=== PATIENT | female | born 1950 | race Hispanic/Latino ===

== ENCOUNTER 2017-09-10 07:49 | Emergency (ER) | payer OTHER ==
[~2017-09-10 07:49] MED LIST: AMLO5TAB2 PO; BACL10TA PO; IBUP-2070 PO; MVIT PO; PRAV10TA39 PO; SUCR1TAB2 PO; TRAM-355 PO
[2017-09-10] MEDS ORDERED: DEXAMETHASONE SOD PHOSPHATE 10MG/ML 1ML VIAL ONE (08:12)
[2017-09-10] MEDS ORDERED: ONDANSETRON HCL 4 MG/2 ML VIAL ONE (08:13)
[2017-09-10] MEDS ORDERED: CEFTRIAXONE SODIUM 1 GM ONE (08:13)
[2017-09-10] MEDS ORDERED: SODIUM CHLORIDE 0.9% 500ML 500 ML IV ONE (08:13)
[2017-09-10] MEDS ORDERED: IPRATROPIUM/ALBUTEROL SULFATE 3 ML SOLUTION IH ONE (08:41)
[2017-09-10 08:47] LABS: BASOPHILS % (AUTO) 0.5 % (0.0-5.0); EOSINOPHILS % (AUTO) 1.4 % (0.0-8.0); HEMATOCRIT 37.9 % (36-48); LYMPHOCYTES % (AUTO) 20.2 % (21.0-51.0); MEAN CORPUSCULAR HEMOGLOBIN 30.2 pg (27.0-33.0); MEAN CORPUSCULAR VOLUME 88.9 fL (79-99); MONOCYTES % (AUTO) 6.6 % (3.0-13.0); NEUTROPHILS % (AUTO) 71.3 % (40.0-77.0); PLATELET COUNT (AUTO) 363 K/uL (130-400); RED BLOOD CELL COUNT(AUTO) 4.26 MIL/uL (4.00-5.50); RED CELL DISTRIBUTION WIDTH 14.3 % (11.0-15.5); WHITE BLOOD COUNT (AUTO) 9.9 K/uL (4.8-10.8)
[2017-09-10 08:58] LABS: CREATININE 0.6 mg/dL (0.5-1.5); POTASSIUM 3.3 mmol/L (3.5-5.1)
== END 2017-09-10 09:36 | disposition home or self-care (01) ==
LOC: EDH 07:49
DX: J20.9 Acute bronchitis, unspecified (principal); R11.0 Nausea; I10 Essential (primary) hypertension; E78.00 Pure hypercholesterolemia, unspecified; M79.7 Fibromyalgia; Z98.890 Other specified postprocedural states; Z90.710 Acquired absence of both cervix and uterus
CPT/HCPCS: 36415; 71046; 80048; 85025; 87804 ×2; 93005; 94640; 96361; 96374; 96375; 99285; J0696; J1100; J2405; J7040

== ENCOUNTER → 2018-02-01 | Outpatient (CLI) | payer OTHER | END | disposition home or self-care (01) | LOC: SHCH 15:49 | PROVIDERS: ATTEND Internal Medicine Cardiovascular Disease | DX: I51.7 Cardiomegaly (principal); I25.119 Atherosclerotic heart disease of native coronary artery with unspecified angina pectoris | CPT/HCPCS: 93306 ==

== ENCOUNTER → 2018-02-02 | Outpatient (CLI) | payer OTHER ==
[~2018-02-02] VITALS: Ht 165.1 cm; Wt 81.6 kg
[~2018-02-02] MED LIST changes: +REGADENOSON 0.4 MG/5 ML PF SYG IVP SCH
== END | disposition home or self-care (01) ==
LOC: SHCH 08:50
PROVIDERS: ATTEND Internal Medicine Cardiovascular Disease
DX: I25.119 Atherosclerotic heart disease of native coronary artery with unspecified angina pectoris (principal)
CPT/HCPCS: 78452; 93017; 96374; A9500 ×2; J2785

== ENCOUNTER 2019-02-17 06:56 | Day surgery (SDC) | payer OTHER ==
[~2019-02-17 06:56] MED LIST changes: -AMLO5TAB2 PO; +ASPI-1181 PO; +ATOR40TA71 PO; +GABA-531 PO; -IBUP-2070 PO; +METR-172 PO; -MVIT PO; +NITR0.4T SL; -PRAV10TA39 PO; -REGADENOSON 0.4 MG/5 ML PF SYG IVP SCH; +SERT25TA5 PO; -TRAM-355 PO
--- NOTE | 2019-02-17 08:30 | NUR ---
PATIENT TRANSFERRED TO IR PATIENT TAKEN TO IR VIA STRETCHER FOR PROCEDURE BY EVIN. Addendum: 02/17/19 at 0955 by JORGE LUIS MCGEHE RN RN [id number] PATIENT TAKEN TO IR
[2019-02-17 08:31] LABS: BASOPHILS % (AUTO) 0.5 % (0.0-5.0); HEMATOCRIT 38.3 % (36-48); MEAN CORPUSCULAR HGB CONC 33.8 g/dL (32.0-36.0); MEAN CORPUSCULAR VOLUME 91.6 fL (79-99); MONOCYTES % (AUTO) 12.5 % (3.0-13.0); NUCLEATED RED BLOOD CELLS 0.1 % (0.0-0.19); PLATELET COUNT (AUTO) 290 K/uL (130-400); RED BLOOD CELL COUNT(AUTO) 4.17 MIL/uL (4.00-5.50); RED CELL DISTRIBUTION WIDTH 14.9 % (11.0-15.5); WHITE BLOOD COUNT (AUTO) 6.2 K/uL (4.8-10.8)
[2019-02-17 08:41] LABS: INR 1.11 (0.85-1.15); PARTIAL THROMBOPLASTIN TIME 29.3 SEC (26.3-35.5); PROTHROMBIN TIME 11.6 SEC (9.6-11.6)
[2019-02-17 09:08] LABS: CREATININE 0.7 mg/dL (0.5-1.5); POTASSIUM 4.2 mmol/L (3.5-5.1)
[2019-02-17 09:28] LABS: ALBUMIN 3.6 g/dL (3.5-5.0); BILIRUBIN,TOTAL 1.5 mg/dL (0.2-1.0); TOTAL PROTEIN, SERUM 7.1 g/dL (6.0-8.3)
[2019-02-17] MEDS ORDERED: FENTANYL CITRATE PF 50 MCG/1 ML 2ML VIAL ONE (09:56)
[2019-02-17] MEDS ORDERED: MIDAZOLAM HCL 1 MG/ML 2ML VIAL ONE (09:56)
--- NOTE | 2019-02-17 11:05 | NUR ---
U/S GD LIVER BX RANDOM SITE PROCEDURE PERFORMED BY DR Mike PIERSON. PUNCTURE SITE RUQ AND PATIENT TOLERATED PROCEDURE WELL. SPECIMEN X 3 COLLECTED AND SENT TO LAB. END OF PROCEDURE AT 1030. FLOSEAL INJECTED TO BX SITE. BIOPSY NEEDLE REMOVED AND DRESSING APPLIED. NO BLEEDING NOTED. REPORT GIVEN TO Serenity CLARK RN AND PATIENT TRANSPORTED TO DAY PATIENT VIA STRETCHER AT 1105. AAO X3 WITH NO C/O PAIN.
--- NOTE | 2019-02-17 11:10 | NUR ---
PATIENT RETURNED: PATIENT BROUGHT BACK FROM PROCEDURE ON STRETCHER. PATIENT AAOX3, MINIMAL PAIN/DISCOMFORT NOTED. DRESSING DRY AND INTACT, NO DRAINAGE OR REDNESS NOTED. VITAL SIGNS STABLE.
== END 2019-02-17 12:50 | disposition home or self-care (01) ==
LOC: DAH 06:56 → EDSTATUS 08:00 → DAH 12:50
PROVIDERS: ATTEND Internal Medicine Gastroenterology
DX: K73.9 Chronic hepatitis, unspecified (principal); K74.60 Unspecified cirrhosis of liver; K59.04 Chronic idiopathic constipation; K21.0 Gastro-esophageal reflux disease with esophagitis; K76.0 Fatty (change of) liver, not elsewhere classified; K29.70 Gastritis, unspecified, without bleeding; K44.9 Diaphragmatic hernia without obstruction or gangrene; E78.5 Hyperlipidemia, unspecified; I10 Essential (primary) hypertension; F41.9 Anxiety disorder, unspecified; F32.9 Major depressive disorder, single episode, unspecified; M19.90 Unspecified osteoarthritis, unspecified site; M79.7 Fibromyalgia; I25.10 Atherosclerotic heart disease of native coronary artery without angina pectoris; Z79.899 Other long term (current) drug therapy; Z90.710 Acquired absence of both cervix and uterus
CPT/HCPCS: 36415; 47000; 76942; 80053; 85025; 85610; 85730; 88307; C2615; J2250; J3010; 99152; 99153

== ENCOUNTER → 2020-02-17 | Outpatient (CLI) | payer OTHER | END | disposition home or self-care (01) | DX: R10.11 Right upper quadrant pain (principal) ==

== ENCOUNTER 2020-06-28 17:00 | Observation (INO) | payer OTHER ==
[~2020-06-28] VITALS: Ht 165.1 cm; Wt 75.7 kg
[~2020-06-28 17:00] MED LIST changes: -ASPI-1181 PO; +ASPI-1443 PO
[2020-06-28 17:34] VITALS: BP 128/76
[2020-06-28 18:26] LABS: HEMATOCRIT 36.4 % (36-48); MEAN CORPUSCULAR HEMOGLOBIN 31.1 pg (27.0-33.0); MEAN CORPUSCULAR HGB CONC 34.6 g/dL (32.0-36.0); MEAN CORPUSCULAR VOLUME 89.9 fL (79-99); PLATELET COUNT (AUTO) 405 K/uL (130-400); RED BLOOD CELL COUNT(AUTO) 4.05 MIL/uL (4.00-5.50); RED CELL DISTRIBUTION WIDTH 13.8 % (11.0-15.5); WHITE BLOOD COUNT (AUTO) 5.2 K/uL (4.8-10.8)
[2020-06-28 18:43] LABS: INR 1.06 (0.85-1.15); PARTIAL THROMBOPLASTIN TIME 29.6 SEC (26.3-35.5); PROTHROMBIN TIME 11.4 SEC (9.6-11.6)
[2020-06-28 18:51] LABS: ALANINE AMINOTRANSFERASE 38 U/L (12-78); ALBUMIN 3.5 g/dL (3.5-5.0); ASPARTATE AMINOTRANSFERASE 53 U/L (10-37); BILIRUBIN,TOTAL 1.4 mg/dL (0.2-1.0); CARBON DIOXIDE 30 mmol/L (21-32); CHLORIDE 97 mmol/L (101-111); CREATINE KINASE, TOTAL 249 U/L (21-232); CREATININE 0.7 mg/dL (0.5-1.5); GLOMERULAR FILTR. RATE CALC 88 mL/min (>60); GLUCOSE,RANDOM 106 mg/dL (70-105); MYOGLOBIN 82 ng/mL (10-92); SODIUM SERUM 133 mmol/L (136-145); TROPONIN I < 0.04 ng/mL (0.00-0.06); UREA NITROGEN, BLOOD 8 mg/dL (7-18)
[2020-06-28 18:53] LABS: POTASSIUM 2.9 mmol/L (3.5-5.1)
[2020-06-28 18:57] LABS: B-TYPE NATRIURETIC PEPTIDE 9 pg/mL (0-100)
[2020-06-28] MEDS ORDERED: GLUCAGON 1MG KIT 1 MG ML IM PRN (19:00)
[2020-06-28] MEDS ORDERED: POTASSIUM CHLORIDE 20MEQ/100ML 100 ML IV PRN (19:00)
[2020-06-28] MEDS ORDERED: LIDOCAINE HCL-MPF 1% 2ML VIAL IJ PRN (19:00)
[2020-06-28] MEDS ORDERED: DEXTROSE 50%-WATER 50 ML DISP.SYRIN IV PRN (19:00)
[2020-06-28] MEDS ORDERED: POTASSIUM CHLORIDE 20 MEQ ERTAB PO PRN (19:00)
[2020-06-28 19:11] VITALS: BP 129/65
[2020-06-28 19:40] LABS: EOSINOPHILS % (MANUAL) 3 % (1-6); LYMPHOCYTES % (MANUAL) 12 % (22-44); MAN.DIFF COMMENT-IMPRESSION MANUAL DIFFERENTIAL; MONOCYTES % (MANUAL) 13 % (2-9); REACTIVE LYMPHOCYTES 8 % (0-0); SEGMENTED NEUTROPHILS % 64 % (40-70)
[2020-06-28] MEDS ORDERED: SODIUM CHLORIDE 0.9% 250 ML IV ONE (19:58)
[2020-06-28] MEDS: ATORVASTATIN CALCIUM 10 MG TABLET PO SCH (20:14)
[2020-06-28] MEDS: POTASSIUM CHLORIDE 10% ELIXIR 20 MEQ/15 ML UDCUP PO PRN ×2 (20:15→23:34)
[2020-06-28] MEDS: INSULIN R PO SS1 SQ SCH (21:00)
[2020-06-28 23:29] VITALS: BP 122/74
[2020-06-29] VITALS (12 sets, daily range): BP systolic 104–139; BP diastolic 56–89
[2020-06-29] MEDS: POTASSIUM CHLORIDE 10% ELIXIR 20 MEQ/15 ML UDCUP PO PRN ×2 (03:16→03:17)
[2020-06-29] MEDS: INSULIN R PO SS1 SQ SCH ×2 (07:30→11:30)
[2020-06-29] MEDS: HYDROCHLOROTHIAZIDE 25 MG TABLET PO SCH (09:00)
[2020-06-29] MEDS: AMILORIDE HCL 5 MG TABLET PO SCH (09:00)
[2020-06-29] MEDS: AMLODIPINE BESYLATE 5 MG TAB PO SCH (09:00)
[2020-06-29 09:02] LABS: CREATININE 0.7 mg/dL (0.5-1.5); POTASSIUM 4.6 mmol/L (3.5-5.1)
[2020-06-29] MEDS ORDERED: ONDANSETRON HCL 4 MG/2 ML VIAL IVP PRN (10:45)
[2020-06-29] MEDS ORDERED: ACETAMINOPHEN 325 MG TAB PO PRN ×2 (10:45)
[2020-06-29] MEDS ORDERED: AMLO2.5T4 PO (11:28)
[2020-06-29] MEDS ORDERED: FLUT1BLS3 IH (11:28)
[2020-06-29] MEDS ORDERED: HYDR12.54 PO (11:28)
[2020-06-29] MEDS ORDERED: PRED2.5T PO (11:28)
[2020-06-29] MEDS ORDERED: AZAT50TA17 PO (11:28)
[2020-06-29] MEDS ORDERED: ESOM40CA54 PO (11:28)
[2020-06-29] MEDS ORDERED: LINA145C PO (11:28)
[2020-06-29] MEDS ORDERED: AMIL5TAB8 PO (11:28)
[2020-06-29] MEDS ORDERED: ROSU5TAB12 PO (11:28)
[2020-06-29] MEDS ORDERED: HYDROCHLOROTHIAZIDE 25 MG TABLET PO SCH (11:55)
[2020-06-29] MEDS ORDERED: AMILORIDE HCL 5 MG TABLET PO SCH (12:00)
[2020-06-29] MEDS ORDERED: NITROGLYCERIN 2 MG/VIAL VIAL IV ONE (15:33)
[2020-06-29] MEDS ORDERED: NICARDIPINE HCL 25 MG/10 ML ML IV ONE (15:33)
[2020-06-29] MEDS ORDERED: IOHEXOL-350 50ML VIAL IV ONE (15:34)
[2020-06-29] MEDS ORDERED: IOHEXOL 350 MG/ML 100ML INFUS..BTL IV ONE (15:34)
[2020-06-29] MEDS ORDERED: LIDOCAINE HCL 2% 20ML ONE (15:39)
[2020-06-29] MEDS ORDERED: SODIUM BICARB 50MEQ 50ML VIAL 50 ML ONE (15:39)
[2020-06-29] MEDS ORDERED: HEPARIN SODIUM 1000UNIT/ML 10ML VIAL ONE (15:58)
[2020-06-29] MEDS ORDERED: MIDAZOLAM HCL 1 MG/ML 2ML VIAL ONE (15:59)
[2020-06-29] MEDS ORDERED: FENTANYL CITRATE PF 50 MCG/1 ML 2ML VIAL ONE (15:59)
[2020-06-29] MEDS: FAMOTIDINE 20MG TAB 20 MG TAB PO SCH (20:59)
[2020-06-29] MEDS: ATORVASTATIN CALCIUM 10 MG TABLET PO SCH (20:59)
[2020-06-29] MEDS ORDERED: NON-FORMULARY MEDICATION 1 EACH (Rosuvastatin Calcium 1 TAB) PO SCH (21:00)
[2020-06-30 03:48] VITALS: BP 127/70
[2020-06-30] MEDS ORDERED: AMLODIPINE BESYLATE 2.5 MG TAB PO SCH (09:00)
[2020-06-30] MEDS: AMILORIDE HCL 5 MG TABLET PO SCH (09:00)
[2020-06-30] MEDS: HYDROCHLOROTHIAZIDE 25 MG TABLET PO SCH (09:00)
[2020-06-30 09:03] VITALS: BP 127/69
[2020-06-30] MEDS: FAMOTIDINE 20MG TAB 20 MG TAB PO SCH (09:35)
[2020-06-30] MEDS: AMLODIPINE BESYLATE 5 MG TAB PO SCH (09:36)
[2020-06-30 12:08] VITALS: BP 122/69
[2020-06-30 16:29] VITALS: BP 130/73
[2020-06-30] MEDS ORDERED: AMIL5TAB8 PO (18:12)
== END 2020-06-30 19:45 | disposition home or self-care (01) ==
LOC: 4BH 17:00 → INTOOBSV 17:00
PROVIDERS: ADMIT Internal Medicine; ATTEND Internal Medicine
PROC: B2111ZZ Fluoroscopy of Multiple Coronary Arteries using Low Osmolar Contrast (ICD-10-PCS; principal; 2020-06-28)
PROC: B2151ZZ Fluoroscopy of Left Heart using Low Osmolar Contrast (ICD-10-PCS; 2020-06-28)
PROC: 4A023N7 Measurement of Cardiac Sampling and Pressure, Left Heart, Percutaneous Approach (ICD-10-PCS; 2020-06-28)
DX: I25.10 Atherosclerotic heart disease of native coronary artery without angina pectoris (principal); E78.5 Hyperlipidemia, unspecified; E87.6 Hypokalemia; I10 Essential (primary) hypertension; Z60.2 Problems related to living alone; K82.8 Other specified diseases of gallbladder; R07.89 Other chest pain; Z82.0 Family history of epilepsy and other diseases of the nervous system; Z82.3 Family history of stroke; Z82.49 Family history of ischemic heart disease and other diseases of the circulatory system; Z82.5 Family history of asthma and other chronic lower respiratory diseases; Z83.3 Family history of diabetes mellitus
CPT/HCPCS: 36415 ×2; 71045; 80048; 80053; 82550; 82948; 83874; 83880; 84484 ×2; 85025; 85610; 85730; 93005; 93458; C1769 ×2; C1894 ×2; G0378 ×51; J1644 ×2; J2250; J3010; J3480; J3490 ×5; J7050; Q9965; Q9967 ×2; 99156; 99157

== ENCOUNTER → 2020-12-20 | Outpatient (CLI) | payer OTHER ==
[~2020-12-20] MED LIST changes: +AMIL5TAB8 PO; +AMLO2.5T4 PO; -ASPI-1443 PO; -ATOR40TA71 PO; +AZAT50TA17 PO; -BACL10TA PO; +ESOM40CA54 PO; +FLUT1BLS3 IH; -GABA-531 PO; +HYDR12.54 PO; +LINA145C PO; -METR-172 PO; -NITR0.4T SL; +PRED2.5T PO; +ROSU5TAB12 PO; -SERT25TA5 PO; -SUCR1TAB2 PO
== END | disposition home or self-care (01) ==
LOC: RAH 09:09
PROVIDERS: ATTEND Internal Medicine Gastroenterology
DX: R10.12 Left upper quadrant pain (principal); Z90.49 Acquired absence of other specified parts of digestive tract
CPT/HCPCS: 76700

== ENCOUNTER 2021-01-02 10:56 | Emergency (ER) | payer OTHER ==
[2021-01-02 11:45] LABS: BASOPHILS % (AUTO) 0.5 % (0.0-5.0); EOSINOPHILS % (AUTO) 0.8 % (0.0-8.0); HEMATOCRIT 39.3 % (36-48); LYMPHOCYTES % (AUTO) 17.3 % (21.0-51.0); MEAN CORPUSCULAR HEMOGLOBIN 31.4 pg (27.0-33.0); MEAN CORPUSCULAR HGB CONC 34.1 g/dL (32.0-36.0); MONOCYTES % (AUTO) 11.1 % (3.0-13.0); NEUTROPHILS % (AUTO) 69.8 % (40.0-77.0); PLATELET COUNT (AUTO) 369 K/uL (130-400); RED BLOOD CELL COUNT(AUTO) 4.27 MIL/uL (4.00-5.50); RED CELL DISTRIBUTION WIDTH 15.5 % (11.0-15.5); WHITE BLOOD COUNT (AUTO) 6.4 K/uL (4.8-10.8)
[2021-01-02] MEDS ORDERED: PROCHLORPERAZINE EDISYLATE 10 MG/2 ML VIAL ONE (11:45)
[2021-01-02] MEDS ORDERED: MORPHINE 4 MG SYG (4MG/1ML) ONE (11:45)
[2021-01-02] MEDS ORDERED: ONDANSETRON HCL 4 MG/2 ML VIAL ONE (11:45)
[2021-01-02] MEDS ORDERED: SODIUM CHLORIDE 0.9% 500ML 500 ML IV ONE (11:46)
[2021-01-02 11:52] LABS: CREATININE 0.6 mg/dL (0.5-1.5); POTASSIUM 3.6 mmol/L (3.5-5.1)
[2021-01-02 12:03] LABS: ALBUMIN 3.7 g/dL (3.5-5.0); TOTAL PROTEIN, SERUM 7.7 g/dL (6.0-8.3)
[2021-01-02 14:55] LABS: APPEARANCE,URINE CLOUDY (CLEAR); BILIRUBIN,URINE NEGATIVE (NEGATIVE); COLOR,URINE YELLOW (YELLOW); GLUCOSE, URINE (UA) NEGATIVE (NEGATIVE); KETONES,URINE NEGATIVE (NEGATIVE); LEUKOCYTE ESTERASE ,URINE LARGE (NEGATIVE); NITRATE,URINE POSITIVE (NEGATIVE); OCCULT BLOOD,URINE LARGE (NEGATIVE); PROTEIN,URINE NEGATIVE (NEGATIVE); UROBILINOGEN,URINE 0.2 mg/dL (0.2-1.0)
[2021-01-02 15:01] LABS: BACTERIA,URINE Many /HPF (None Seen); MUCUS,URINE Few LPF (None Seen); SQUAMOUS EPITHELIAL CELL,UR Few /HPF (0-2); WBC,URINE 51-100 /HPF (0-1)
[2021-01-02] MEDS ORDERED: CEFTRIAXONE SODIUM 1 GM ONE (15:15)
[2021-01-02] MEDS ORDERED: SODIUM CHLORIDE 0.9% 50 ML IV ONE (15:15)
== END 2021-01-02 15:46 | disposition home or self-care (01) ==
LOC: EDH 10:56
DX: N10 Acute pyelonephritis (principal); N39.0 Urinary tract infection, site not specified; I10 Essential (primary) hypertension; M79.7 Fibromyalgia; E78.00 Pure hypercholesterolemia, unspecified; E86.0 Dehydration
CPT/HCPCS: 36415; 74176; 80053; 81001; 85025; 87077; 87088; 87186; 96361; 96365; 96375; 99284; J0696; J0780; J2270; J2405; J7040

== ENCOUNTER → 2021-02-07 | Outpatient (CLI) | payer OTHER | END | disposition home or self-care (01) | LOC: RAH 09:50 | PROVIDERS: ATTEND Urology | DX: N20.1 Calculus of ureter (principal); N20.0 Calculus of kidney; M41.80 Other forms of scoliosis, site unspecified; K76.0 Fatty (change of) liver, not elsewhere classified; K57.90 Diverticulosis of intestine, part unspecified, without perforation or abscess without bleeding; N32.89 Other specified disorders of bladder; K56.41 Fecal impaction; I70.8 Atherosclerosis of other arteries; M47.815 Spondylosis without myelopathy or radiculopathy, thoracolumbar region; Z87.440 Personal history of urinary (tract) infections; Z90.49 Acquired absence of other specified parts of digestive tract | CPT/HCPCS: 74176 ==

== ENCOUNTER 2021-03-29 18:03 | Emergency (ER) | payer OTHER ==
[~2021-03-29] VITALS: Ht 165.1 cm; Wt 72.1 kg
[2021-03-29 18:07] VITALS: BP 159/81
[2021-03-29] MEDS ORDERED: 0.9%NACL 1000ML 1,000 ML IV SCH (19:00)
[2021-03-29 19:28] VITALS: BP 144/75
[2021-03-29 19:29] LABS: BASOPHILS % (AUTO) 0.5 % (0.0-5.0); EOSINOPHILS % (AUTO) 0.5 % (0.0-8.0); HEMATOCRIT 37.3 % (36-48); LYMPHOCYTES % (AUTO) 9.5 % (21.0-51.0); MEAN CORPUSCULAR HEMOGLOBIN 31.2 pg (27.0-33.0); MEAN CORPUSCULAR VOLUME 94.7 fL (79-99); MONOCYTES % (AUTO) 10.7 % (3.0-13.0); NEUTROPHILS % (AUTO) 78.5 % (40.0-77.0); PLATELET COUNT (AUTO) 305 K/uL (130-400); RED BLOOD CELL COUNT(AUTO) 3.94 MIL/uL (4.00-5.50); RED CELL DISTRIBUTION WIDTH 15.1 % (11.0-15.5); WHITE BLOOD COUNT (AUTO) 6.6 K/uL (4.8-10.8)
[2021-03-29] MEDS ORDERED: LACTULOSE 20 GM/30 ML UDCUP PO ONE (19:30)
[2021-03-29 19:33] LABS: CARBON DIOXIDE 30 mmol/L (21-32); CHLORIDE 104 mmol/L (101-111); CREATININE 0.6 mg/dL (0.5-1.5); GLOMERULAR FILTR. RATE CALC 105 mL/min (>60); GLUCOSE,RANDOM 113 mg/dL (70-105); POTASSIUM 3.3 mmol/L (3.5-5.1); SODIUM SERUM 143 mmol/L (136-145); UREA NITROGEN, BLOOD 13 mg/dL (7-18)
[2021-03-29 19:37] LABS: ALANINE AMINOTRANSFERASE 41 U/L (12-78); ALBUMIN 3.3 g/dL (3.5-5.0); ASPARTATE AMINOTRANSFERASE 41 U/L (10-37); TOTAL PROTEIN, SERUM 6.8 g/dL (6.0-8.3)
[2021-03-29 19:39] LABS: CRP QUANTITATIVE < 2.00 mg/L (0.00-9.0)
[2021-03-29 19:43] LABS: APPEARANCE,URINE Clear (CLEAR); BILIRUBIN,URINE Negative (NEGATIVE); COLOR,URINE Yellow (YELLOW); GLUCOSE, URINE (UA) Negative (NEGATIVE); KETONES,URINE Negative (NEGATIVE); LEUKOCYTE ESTERASE ,URINE Trace (NEGATIVE); NITRATE,URINE Negative (NEGATIVE); OCCULT BLOOD,URINE Trace (NEGATIVE); PH,URINE 6.5 (5.0-8.0); PROTEIN,URINE Negative (NEGATIVE); UROBILINOGEN,URINE 0.2 mg/dL (0.2-1.0)
[2021-03-29 19:55] LABS: BACTERIA,URINE Few /HPF (None Seen); RBC,URINE 0-1 /HPF (0-1); SQUAMOUS EPITHELIAL CELL,UR Rare /HPF (0-2)
[2021-03-29] MEDS ORDERED: POTASSIUM BICARB/CIT AC 25 MEQ TABLET.EFF PO ONE (20:00)
[2021-03-29] MEDS ORDERED: LACT10PA5 PO (20:02)
[2021-03-29 20:55] VITALS: BP 147/77
== END 2021-03-29 21:40 | disposition home or self-care (01) ==
LOC: EDH 18:03
DX: K57.30 Diverticulosis of large intestine without perforation or abscess without bleeding (principal); K59.00 Constipation, unspecified; E78.00 Pure hypercholesterolemia, unspecified; I10 Essential (primary) hypertension; J44.9 Chronic obstructive pulmonary disease, unspecified; M19.90 Unspecified osteoarthritis, unspecified site; M79.7 Fibromyalgia; E86.0 Dehydration; Z79.52 Long term (current) use of systemic steroids; Z79.899 Other long term (current) drug therapy
CPT/HCPCS: 36415; 71045; 74176; 80053; 81001; 83605; 84484; 85025; 86140; 87040 ×2; 93005; 96360; 99285; J7030

== ENCOUNTER → 2021-05-28 | Outpatient (CLI) | payer OTHER ==
[~2021-05-28] MED LIST changes: +LACT10PA5 PO
== END | disposition home or self-care (01) ==
LOC: RAH 13:26
PROVIDERS: ATTEND Family Medicine
DX: N39.0 Urinary tract infection, site not specified (principal); R39.15 Urgency of urination
CPT/HCPCS: 76857

== ENCOUNTER → 2023-03-17 | Outpatient (CLI) | payer OTHER ==
[~2023-03-17] MED LIST changes: -AMIL5TAB8 PO; +AMOX1TAB16 PO; +ASCO100031 PO; -AZAT50TA17 PO; +AZAT75TA2 PO; +BENZ200C53 PO; +CHOL500062 PO; +CRAN500C4 PO; +CYCL5TAB PO; +FLUT16H NS; +FOLI0.8T3 PO; -HYDR12.54 PO; -LACT10PA5 PO; -LINA145C PO; +LINA72CA PO; +LOSA25TA41 PO; +MAGN500C4 PO; +MELO-106 PO; -PRED2.5T PO; +ZINC220T4 PO
== END | disposition home or self-care (01) ==
LOC: RAH 07:59
PROVIDERS: ATTEND Internal Medicine Gastroenterology
DX: K21.9 Gastro-esophageal reflux disease without esophagitis (principal); R10.84 Generalized abdominal pain; R10.13 Epigastric pain
CPT/HCPCS: 74240

== ENCOUNTER → 2023-03-27 | Outpatient (CLI) | payer OTHER | END | disposition home or self-care (01) | LOC: RAH 07:25 | PROVIDERS: ATTEND Internal Medicine Gastroenterology | DX: R14.0 Abdominal distension (gaseous) (principal); R68.81 Early satiety | CPT/HCPCS: 78264; A9541 ==

== ENCOUNTER 2023-05-16 12:42 | Emergency (ER) | payer OTHER ==
[~2023-05-16] VITALS: Ht 152.4 cm; Wt 71.7 kg
[2023-05-16 12:42] VITALS: BP 166/94; PULSE 84; RESP 16
[2023-05-16] MEDS ORDERED: IBUP-2076 PO (15:25)
[2023-05-16] MEDS ORDERED: KETOROLAC 15MG/ML VIAL (15MG/ML) IM ONE (15:30)
== END 2023-05-16 15:44 | disposition home or self-care (01) ==
LOC: EDH 12:42
DX: S51.811A Laceration without foreign body of right forearm, initial encounter (principal); S89.81XA Other specified injuries of right lower leg, initial encounter; I10 Essential (primary) hypertension; E78.00 Pure hypercholesterolemia, unspecified; M79.7 Fibromyalgia; J44.9 Chronic obstructive pulmonary disease, unspecified; Z90.49 Acquired absence of other specified parts of digestive tract; Z79.899 Other long term (current) drug therapy; Z98.890 Other specified postprocedural states; W18.39XA Other fall on same level, initial encounter; Y93.89 Activity, other specified; Y92.89 Other specified places as the place of occurrence of the external cause; Y99.8 Other external cause status
CPT/HCPCS: 99285; 70450; 72125; 73090; 73562; 96372; J1885

== ENCOUNTER → 2023-12-22 | Outpatient (CLI) | payer OTHER ==
[~2023-12-22] MED LIST changes: -ESOM40CA54 PO; +ESOM40CA66 PO; +IBUP-2076 PO; -ROSU5TAB12 PO; +ROSU5TAB43 PO
== END | disposition home or self-care (01) ==
LOC: RAH 11:06
PROVIDERS: ATTEND Internal Medicine
DX: M81.0 Age-related osteoporosis without current pathological fracture (principal); Z78.0 Asymptomatic menopausal state
CPT/HCPCS: 77080

== ENCOUNTER → 2024-01-06 | Outpatient (CLI) | payer OTHER ==
[2024-01-06 16:22] LABS: BASOPHILS # (AUTO) 0.01 K/uL (0.00-0.20); BASOPHILS % (AUTO) 0.1 % (0.0-5.0); EOSINOPHILS # (AUTO) 0.01 K/uL (0.00-0.70); EOSINOPHILS % (AUTO) 0.1 % (0.0-8.0); IMMATURE GRANULOCYTE ABSOLUTE 0.02 K/uL (0-1); LYMPHOCYTES # (AUTO) 0.8 K/uL (1.0-4.8); LYMPHOCYTES % (AUTO) 11.5 % (21.0-51.0); MEAN CORPUSCULAR HEMOGLOBIN 29.9 pg (27.0-33.0); MEAN CORPUSCULAR VOLUME 87.9 fL (79-99); MONOCYTES # (AUTO) 0.1 K/uL (0.1-1.0); MONOCYTES % (AUTO) 1.3 % (3.0-13.0); NEUTROPHILS # (AUTO) 6.1 K/uL (1.8-7.7); NEUTROPHILS % (AUTO) 86.7 % (40.0-77.0); PLATELET COUNT (AUTO) 345 K/uL (130-400); RED BLOOD CELL COUNT(AUTO) 3.98 MIL/uL (4.00-5.50); RED CELL DISTRIBUTION WIDTH 14.3 % (11.0-15.5); WHITE BLOOD COUNT (AUTO) 7.1 K/uL (4.8-10.8)
[2024-01-06 16:31] LABS: INR <= 0.93 (0.85-1.15); PROTHROMBIN TIME 10.9 SEC (9.6-11.6)
[2024-01-06 16:32] LABS: PARTIAL THROMBOPLASTIN TIME 26.5 SEC (26.3-35.5)
[2024-01-06 16:36] LABS: POTASSIUM 3.6 mmol/L (3.5-5.1)
== END | disposition home or self-care (01) ==
LOC: LAB 15:21
PROVIDERS: ATTEND Internal Medicine Cardiovascular Disease
DX: I87.2 Venous insufficiency (chronic) (peripheral) (principal); I10 Essential (primary) hypertension
CPT/HCPCS: 36415; 80048; 85025; 85610; 85730

== ENCOUNTER → 2024-10-08 | Outpatient (CLI) | payer OTHER ==
[~2024-10-08] MED LIST changes: -CYCL5TAB PO; +CYCL5TAB3 PO; -ROSU5TAB43 PO; +ROSU5TAB51 PO
--- NOTE | 2024-10-14 14:17 | HMCSR ---
APPROVED REPORT EXAM: Two-dimensional and M-mode echocardiogram with Doppler and color Doppler. INDICATION ICD: R06.09 Other forms of dyspnea Chest Pain 2D Dimensions RVDd3.7 cmLVEF(%)53.2 (>50%)LVED Vol(simp.)82.0 mL IVSd1.2 (0.7-1.1cm)FS(%)27 %LVES Vol(simp.)34.0 mL LVDd4.6 (3.8-5.6cm)Ao Root(2D)3.7 (2.0-3.7cm)LVEF(%, simp.)59 % PWd1.1 (0.7-1.1cm)LVOT diam1.9 (1.8-2.4cm)LA ESV INDEX (BP)31.87 mL/m2 LVDs3.3 (2.5-4.0cm)IVC diam1.2 cm Aortic Valve AoV Vmax1.2 m/Raul Peak GR5.9 mmHgLVOT Vmax1.2 m/s AoV VTI0.3 mAo Mean GR3.7 mmHgLVOT VTI0.28 m SHAREE (VMAX)2.8 cm2AVA (VTI) 2.8 cm2 Mitral Valve MV E Vmax58.8 cm/sDECEL Pahd552 ms MV A [id number] cm/sP 1/2 T45 ms E/A ratio0.6MVA (PHT)4.9 cm2 TDI E/E' Ggkkuw77.2E/E' Lateral9.0 Pulmonary Valve PV Vmax0.9 m/sPV VTI0.18 mPV Mean GR2 mmHg PV Peak GR3.1 mmHg Tricuspid Valve TR Vmax2.2 m/sRAP (EST) 3 wfPqSXBD56.0 mmHg TR Peak GR20.0 mmHg Left Ventricle The left ventricle structure and function is normal. There is normal LV segmental wall motion. There is mild concentric left ventricular hypertrophy. LVEF is 55-60%. Grade 1 diastolic dysfunction Right Ventricle The right ventricle is normal size. The right ventricular systolic function is normal. Atria The left atrium size is normal. The right atrium size is normal. Aortic Valve Aortic valve is trileaflet. Aortic valve leaflets are sclerotic but open well. Trace aortic regurgita tion. There is no aortic valvular stenosis. Mitral Valve Mitral valve leaflets are mildly sclerotic but open well. Mitral regurgitation is trace. There is no mitral valve stenosis. Tricuspid Valve The tricuspid valve leaflets appear normal. There is trace tricuspid regurgitation. Pulmonic Valve The pulmonic valve leaflets are thin and pliable; valve motion is normal. There is trace pulmonic yuly vular regurgitation. Great Vessels The aortic root is normal in size. The IVC is normal in size and collapses >50% with inspiration. Pericardium No pericardial effusion. Conclusion LVEF is 55-60%. Grade 1 diastolic dysfunction There is normal LV segmental wall motion. There is mild concentric left ventricular hypertrophy. Trace aortic regurgitation. The IVC is normal in size and collapses >50% with inspiration. No pericardial effusion.
== END | disposition home or self-care (01) ==
LOC: SHCH 13:45
PROVIDERS: ATTEND Internal Medicine Cardiovascular Disease
DX: I08.0 Rheumatic disorders of both mitral and aortic valves (principal); R07.9 Chest pain, unspecified; R06.09 Other forms of dyspnea
CPT/HCPCS: 93306

== ENCOUNTER → 2025-01-04 | Outpatient (CLI) | payer OTHER ==
--- NOTE | 2025-01-04 16:14 | HMCIMG ---
SHOULDER COMP 2+VWS RT HISTORY: Pain COMPARISON: None TECHNIQUE: 2 images of the right shoulder were obtained. FINDINGS: There is no acute displaced fracture or dislocation. Degenerative changes are seen. IMPRESSION: 1. Findings as described above.
--- NOTE | 2025-01-04 16:16 | HMCIMG ---
SHOULDER COMP 2+VWS LT HISTORY: Left shoulder pain COMPARISON: None TECHNIQUE: 2 images of the left shoulder were obtained. FINDINGS: There is no acute displaced fracture or dislocation. Degenerative changes are seen. IMPRESSION: 1. Findings as described above.
== END | disposition home or self-care (01) ==
LOC: RAH 15:34
PROVIDERS: ATTEND Physical Medicine & Rehabilitation
DX: M19.012 Primary osteoarthritis, left shoulder (principal); M19.011 Primary osteoarthritis, right shoulder; M25.511 Pain in right shoulder; M25.512 Pain in left shoulder
CPT/HCPCS: 73030

== ENCOUNTER → 2025-02-08 | Outpatient (CLI) | payer OTHER, MEDICAID ==
--- NOTE | 2025-02-09 03:01 | HMCIMG ---
EXAM: CR Lumbar Spine, 4 views. CLINICAL HISTORY: Pain. COMPARISON: MRI lumbar spine dated 02/08/2025. FINDINGS: Grade 1 degenerative anterolisthesis of L3 on L4. Grade 1 degenerative retrolisthesis of T12 on L1. There is no change in flexion and extension. Mild osteopenia. Moderate to severe spondylosis and degenerative disc space narrowing at multiple levels, most pronounced at L4-L5 and L5-S1. S-shaped scoliosis of the thoracolumbar spine. Chronic compression fracture of the L2 vertebral body with about 15% to 20% height reduction. The remaining vertebral body heights are maintained. No acute fracture. Atherosclerotic vascular calcifications. Stent graft in the left iliac vessels. Surgical clips in the right side of the abdomen. IMPRESSION: Grade 1 degenerative anterolisthesis of L3 on L4. Grade 1 degenerative retrolisthesis of T12 on L1. There is no change in flexion and extension. Mild osteopenia. Moderate to severe spondylosis and degenerative disc space narrowing at multiple levels, most pronounced at L4-L5 and L5-S1. S-shaped scoliosis of the thoracolumbar spine. Chronic compression fracture of the L2 vertebral body with about 15% to 20% height reduction. No additional findings compared to the recent MRI. /[place]
--- NOTE | 2025-02-09 03:04 | HMCIMG ---
EXAM: CR Cervical spine, 6 views. CLINICAL HISTORY: Spondylosis. COMPARISON: Same day MRI of the cervical spine. FINDINGS: Grade 1 degenerative anterolisthesis of C3 on C4. No change in flexion and extension. Mild scoliosis. Mild osteopenia. Moderate spondylosis and degenerative disc space narrowing at multiple levels, most pronounced at C5-C6 and C6-C7. Normal vertebral body heights. No acute fracture. The prevertebral soft tissues are within normal limits. The included lungs are clear. IMPRESSION: Grade 1 degenerative anterolisthesis of C3 on C4. No change in flexion and extension. Mild scoliosis. Mild osteopenia. Moderate spondylosis and degenerative disc space narrowing at multiple levels, most pronounced at C5-C6 and C6-C7. No additional findings compared to the recent MRI. /[place]
--- NOTE | 2025-02-09 03:15 | HMCIMG ---
EXAM: CR Entire Spine, 9 views. CLINICAL HISTORY: Scoliosis evaluation. COMPARISON: None provided. FINDINGS: 17 degree levocurvature of the mid to lower thoracic spine, 26 degree dextrocurvature of the thoracolumbar spine, and 27 degree levocurvature of the lumbosacral spine. Osteopenia. Moderate to severe spondylosis and degenerative disc space narrowing at multiple levels. Chronic 15% to 20% height reduction in the L2 vertebral body. The remaining vertebral body heights are maintained. Atherosclerotic vascular calcifications. Stent graft in the left iliac vessel area. Surgical clips in the right side of the abdomen. Mild subsegmental atelectasis in the bilateral lung bases. IMPRESSION: 17 degree levocurvature of the mid to lower thoracic spine, 26 degree dextrocurvature of the thoracolumbar spine, and 27 degree levocurvature of the lumbosacral spine. /[place]
--- NOTE | 2025-02-09 07:47 | HMCIMG ---
EXAM: MR Cervical Spine Without Intravenous Contrast. CLINICAL HISTORY: Pain. TECHNIQUE: Magnetic resonance images of the cervical spine in multiple planes. CONTRAST: None. COMPARISON: X-ray cervical spine of the same date. FINDINGS: The imaged posterior fossa is unremarkable. The craniocervical junction is intact. No acute fracture. Straightening of the normal lordotic curvature. Normal vertebral body heights. Normal marrow signal of the vertebrae. Moderate cervical spondylosis with multilevel marginal osteophytes, facet arthropathy, disc desiccation and degenerative disc space reduction, most pronounced at C6-C7. The cervical cord is in an anatomic location. No abnormal signal involves the cord. No extra-axial masses. The surrounding soft tissues are unremarkable. Level by level disease is present as follows: C1-C2: No osteoarthritis. C2-C3: 2 mm posterior disc osteophyte complex bulge. No neural foraminal, lateral recess or spinal canal stenosis. C3-C4: 4 mm posterior disc osteophyte complex bulge. Severe left lateral recess and neural foraminal stenosis. Mild spinal canal stenosis. Left exiting nerve root impingement. C4-C5: 2 mm posterior disc osteophyte complex bulge. Severe right and moderate left lateral recess and neural foraminal stenosis. Mild spinal canal stenosis. Right exiting nerve root impingement. C5-C6: 3 mm posterior disc osteophyte complex bulge. Moderate bilateral lateral recess and neural foraminal stenosis. Mild spinal canal stenosis. C6-C7: 3 mm posterior disc osteophyte complex bulge. Moderate bilateral lateral recess and neural foraminal stenosis. Mild spinal canal stenosis. C7-T1: No disc bulge or herniation. No neural foraminal, lateral recess or spinal canal stenosis. IMPRESSION: Straightening of the normal lordotic curvature. Moderate cervical spondylosis with multilevel marginal osteophytes, facet arthropathy, disc desiccation and degenerative disc space reduction, most pronounced at C6-C7. Posterior disc osteophyte complex bulges from C2-C3 through C6-C7. Severe left lateral recess and neural foraminal stenosis at C3-C4 with mild spinal canal stenosis and left exiting nerve root impingement. Severe right and moderate left lateral recess and neural foraminal stenosis at C4-C5 with mild spinal canal stenosis and right exiting nerve root impingement. Moderate bilateral lateral recess and neural foraminal stenosis at C5-C6 and C6-C7 with mild spinal canal stenosis. X-ray cervical spine of the same date reveals moderate spondylosis with an additional finding of grade I anterolisthesis of C3 over C4 on the flexion view. /[place]
--- NOTE | 2025-02-09 07:48 | HMCIMG ---
EXAM: MR Lumbar Spine Without Intravenous Contrast. CLINICAL HISTORY: Pain. TECHNIQUE: Magnetic resonance images of the lumbar spine in multiple planes. CONTRAST: None. COMPARISON: X-ray lumbar spine of the same date. FINDINGS: For this examination, spinal levels were labeled assuming five non-rib bearing, lumbar-type vertebrae with the inferior labeled L5. No acute fracture. Normal lordotic curvature.Moderate levoscoliosis. Normal vertebral body heights. Normal marrow signal of the vertebrae. Advanced lumbar spondylosis with multilevel marginal osteophytes, tiny Schmorl's nodes, facet arthropathy, ligamentum flavum hypertrophy, disc desiccation and degenerative disc space reduction, most pronounced at L5-S1. Conus medullaris terminates at the T12-L1 level. No abnormal epidural masses. The surrounding soft tissues are unremarkable. Individual spinal levels are described as follows: T12-L1: 5 mm diffuse disc bulge. Severe bilateral lateral recess and neural foraminal stenosis. No spinal canal stenosis. L1-L2: 5 mm diffuse disc bulge. Severe right and mild left lateral recess and neural foraminal stenosis. No spinal canal stenosis. L2-L3: 5 mm diffuse disc bulge. Severe right and mild left lateral recess and neural foraminal stenosis. No spinal canal stenosis. Right traversing and exiting nerve root impingement. L3-L4: 5 mm diffuse disc bulge. Moderate right and mild left lateral recess and neural foraminal stenosis. No spinal canal stenosis. L4-L5: 5 mm diffuse disc bulge. Mild right and severe left lateral recess and neural foraminal stenosis. No spinal canal stenosis. Left traversing and exiting nerve root impingement. L5-S1: 5 mm diffuse disc bulge with 3 mm left paracentral disc protrusion. Mild right and severe left lateral recess and neural foraminal stenosis. No spinal canal stenosis. IMPRESSION: Advanced lumbar spondylosis with multilevel marginal osteophytes, tiny Schmorl's nodes, facet arthropathy, ligamentum flavum hypertrophy, disc desiccation and degenerative disc space reduction, most pronounced at L5-S1. Moderate levoscoliosis. Diffuse disc bulges from T12-L1 through L5-1. 3 mm left paracentral disc protrusion at L5-S1. Severe bilateral lateral recess and neural foraminal stenosis at T12-L1. Severe right and mild left lateral recess and neural foraminal stenosis at L1-L2 and L2-L3. Moderate right and mild left lateral recess and neural foraminal stenosis at L3-L4. Mild right and severe left lateral recess and neural foraminal stenosis at L4-L5 and L5-S1. Right traversing and exiting nerve root impingement at L2-L3. Left traversing and exiting nerve root impingement at L4-L5. /[place]
== END | disposition home or self-care (01) ==
LOC: RAH 14:14
PROVIDERS: ATTEND Physical Medicine & Rehabilitation
DX: M48.56XA Collapsed vertebra, not elsewhere classified, lumbar region, initial encounter for fracture (principal); M47.812 Spondylosis without myelopathy or radiculopathy, cervical region; M47.817 Spondylosis without myelopathy or radiculopathy, lumbosacral region; M51.379 Other intervertebral disc degeneration, lumbosacral region without mention of lumbar back pain or lower extremity pain; M51.27 Other intervertebral disc displacement, lumbosacral region; M50.20 Other cervical disc displacement, unspecified cervical region; M43.15 Spondylolisthesis, thoracolumbar region; M43.12 Spondylolisthesis, cervical region; M50.323 Other cervical disc degeneration at C6-C7 level; M50.322 Other cervical disc degeneration at C5-C6 level; M50.121 Cervical disc disorder at C4-C5 level with radiculopathy; M50.31 Other cervical disc degeneration, high cervical region; M48.02 Spinal stenosis, cervical region; M48.07 Spinal stenosis, lumbosacral region; M85.88 Other specified disorders of bone density and structure, other site; M41.85 Other forms of scoliosis, thoracolumbar region; M53.86 Other specified dorsopathies, lumbar region; M41.82 Other forms of scoliosis, cervical region; J98.11 Atelectasis; G89.4 Chronic pain syndrome; M25.78 Osteophyte, vertebrae
CPT/HCPCS: 72050; 72082; 72114; 72141; 72148

== ENCOUNTER → 2025-02-15 | Outpatient (CLI) | payer OTHER, MEDICAID ==
--- NOTE | 2025-02-15 19:22 | HMCIMG ---
EXAMINATION: CT Head Without IV contrast. 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 COMPARISON: CT head dated May 16, 2023. TECHNIQUE: Axial computed tomography images of the head/brain without intravenous contrast. Sagittal and coronal reformatted images submitted for interpretation. FINDINGS: BRAIN: No acute hemorrhage. No mass lesion. No CT evidence for acute territorial infarct. No midline shift or extra-axial collections. Mild diffuse cerebral atrophy with prominent cortical sulci, basal cisterns, and bilateral sylvian fissures. VENTRICLES: No hydrocephalus. ORBITS: The orbits are unremarkable. SINUSES AND MASTOIDS: The paranasal sinuses and mastoid air cells are clear. BONES: No fracture. SOFT TISSUES: Unremarkable. IMPRESSION: Mild diffuse cerebral atrophy. No acute intracranial abnormality. /[place]
== END | disposition home or self-care (01) ==
LOC: RAH 13:52
PROVIDERS: ATTEND Internal Medicine
DX: S06.5X9A Traumatic subdural hemorrhage with loss of consciousness of unspecified duration, initial encounter (principal); G31.9 Degenerative disease of nervous system, unspecified; X58.XXXA Exposure to other specified factors, initial encounter; Y93.89 Activity, other specified; Y92.89 Other specified places as the place of occurrence of the external cause; Y99.8 Other external cause status
CPT/HCPCS: 70450

== ENCOUNTER → 2025-02-24 | Outpatient (CLI) | payer OTHER, MEDICAID ==
[~2025-02-24] MED LIST changes: +GADOTERATE MEGLUMINE 10 MMOL/20 ML VIAL IV ONE
--- NOTE | 2025-02-25 17:04 | HMCIMG ---
EXAMINATION: NONCONTRAST MRI OF THE RIGHT SHOULDER. CLINICAL HISTORY: Right shoulder pain. COMPARISON: None provided. TECHNIQUE: Multiplanar, multisequence MR images of the right shoulder are submitted. FINDINGS: There is type I acromion with no subacromial spur. The coracoclavicular ligament is intact. There is mild acromioclavicular joint osteoarthrosis with mild periosseous synovial thickening. There is no subacromial-subdeltoid bursitis. The peritendinous soft tissues are normal. Full thickness supraspinatus and infraspinatus footprint tear measuring 4 cm phil-posteriorly and retracted up to gleno-humeral joint level by 3.7 cm. Moderate supraspinatus and infraspinatus muscle atrophy with fatty infiltration. There is resultant cranial migration of humeral head. Mild subscapularis insertional tendinosis. The teres minor tendons are intact without evidence of tendinopathy or tear. Small infraspinatus enthesis cystic changes. There is advanced long head of biceps tendinosis with no healthy remnant seen. There is normal bone marrow signal within the shoulder girdle without fracture, avascular necrosis, or osteomyelitis. Superior labral tear extending anteriorly and posteriorly up to the equator with glenoid marginal osteophyte. The glenohumeral joint is intact. Mild joint effusion with fluid extending into subcoracoid Bursa. The soft tissues are normal. IMPRESSION: 1. Full thickness supraspinatus and infraspinatus tear measuring 4 cm phil-posteriorly with 3.7 cm retraction and moderate muscle atrophy 2. Superior labral tear extending anteriorly and posteriorly with glenoid marginal osteophyte 3. Advanced long head of biceps tendinosis with no healthy remnant seen 4. Mild subscapularis insertional tendinosis. /[place]
== END | disposition home or self-care (01) ==
LOC: RAH 12:47
PROVIDERS: ATTEND Internal Medicine
DX: S43.431A Superior glenoid labrum lesion of right shoulder, initial encounter (principal); M75.121 Complete rotator cuff tear or rupture of right shoulder, not specified as traumatic; M19.011 Primary osteoarthritis, right shoulder; M62.511 Muscle wasting and atrophy, not elsewhere classified, right shoulder; M67.813 Other specified disorders of tendon, right shoulder; M25.811 Other specified joint disorders, right shoulder; M25.411 Effusion, right shoulder; M25.511 Pain in right shoulder; R93.7 Abnormal findings on diagnostic imaging of other parts of musculoskeletal system; X58.XXXA Exposure to other specified factors, initial encounter; Y93.89 Activity, other specified; Y92.89 Other specified places as the place of occurrence of the external cause; Y99.8 Other external cause status
CPT/HCPCS: 73223; A9575

== ENCOUNTER 2025-03-18 19:35 | Inpatient (IN) | payer OTHER, MEDICAID ==
[~2025-03-18] VITALS: Ht 154.9 cm; Wt 66.2 kg
[~2025-03-18 19:35] MED LIST changes: -AMLO2.5T4 PO; -AMOX1TAB16 PO; -ASCO100031 PO; +ASCO10004 PO; +CELE-146 PO; +CLOP-31 PO; +DULO20CA18 PO; -FLUT16H NS; -GADOTERATE MEGLUMINE 10 MMOL/20 ML VIAL IV ONE; +LEVO-70 PO; +LEVO5TAB13 PO; -LOSA25TA41 PO; +LOSA50TA64 PO; +LUBI24CA40 PO
--- NOTE | 2025-03-18 19:42 | ERN ---
ED Note History of Present Illness Stated Complaint: GBW, UNABLE TO EAT, ABD PAIN Chief Complaint: Other Problems Time Seen by MD: 19:39 Time Seen by Midlevel: 19:41 Dictation: Ms. Andrews is a 75-year-old female with history of hypertension, hyperlipidemia, fibromyalgia, anemia, liver disease, COPD, neurogenic bladder, frequent UTI, chronic Kemp catheter, and GERD who presented to the emergency department this evening for evaluation of general body weakness. Patient was discharged from the hospital on 03/09 following admission for UTI, hematuria, and hyponatremia. Urine culture positive for E coli and was prescribed Levaquin daily times 14 days. For the past 3-4 days she has had decreased energy, fatigue, general body weakness, nausea, anorexia, chills, and upper abdominal pain. She denies fever, shortness of breath, cough, chest pain, palpitations, edema, vomiting, hematemesis, constipation, diarrhea, melena, hematochezia, dysuria, headache, or dizziness. Allergies: Coded Allergies: No Known Drug Allergies (Unverified Allergy, Unknown, 08/16/14) Emergency Care LIFE SCIENCES INSTRUCTOR: None Home Meds Active Scripts Levofloxacin (Levofloxacin) 500 Mg Tablet, 1 TAB PO DAILY for 14 Days, #10 TAB 0 Refills Prov:SHANE RODGERS NP 03/09/25 Ibuprofen (Ibuprofen) 400 Mg Tablet, 400 MG PO Q6HPRN PRN for PAIN, #20 TAB Prov:RIGO BALTAZAR MD 05/16/23 Reported Medications Baclofen (Baclofen) 10 Mg Tablet, 5 MG PO HS, TAB 03/18/25 Hydroxyzine HCl (Hydroxyzine HCl) 25 Mg Tablet, 1 TAB PO BID PRN for ANXIETY/AGITATION for 30 Days, #60 TAB 0 Refills 03/18/25 Losartan Potassium (Losartan Potassium) 50 Mg Tablet, 50 MG PO DAILY, TAB 03/05/25 Clopidogrel Bisulfate (Plavix) 75 Mg Tablet, 75 MG PO DAILY, TAB 03/05/25 Duloxetine HCl (Duloxetine HCl) 20 Mg Capsule.dr, 20 MG PO BID, CAP 03/05/25 Lubiprostone (Amitiza) 24 Mcg Capsule, 24 MCG PO BID, CAP 03/05/25 Levocetirizine Dihydrochloride (Levocetirizine Dihydrochloride) 5 Mg Tablet, 5 MG PO HS, TAB 03/05/25 Celecoxib (Celecoxib) 100 Mg Capsule, 100 MG PO BID, CAP 03/05/25 Zinc Sulfate (Zinc) 50 Mg Tablet, 50 MG PO DAILY, TAB 08/03/22 Ascorbic Acid (Vitamin C) 1,000 Mg Tablet, 1000 MG PO DAILY, TAB 08/03/22 Cranberry Extract (Cranberry Concentrate) 500 Mg Capsule, 58517 MG PO DAILY, CAP 08/03/22 Magnesium Oxide (Magnesium) 500 Mg Capsule, 500 MG PO DAILY, CAP 08/03/22 Folic Acid (Folic Acid) 0.8 Mg Tablet, 0.8 MG PO DAILY, TAB 08/03/22 Cholecalciferol (Vitamin D3) (Vitamin D3) 125 Mcg Tab.rapdis, 125 MCG PO DAILY, TAB 08/03/22 Fluticasone/Umeclidin/Vilanter (Trelegy Ellipta 100-62.5-25) 1 Each Blst.w.dev, 1 EACH IH DAILY 08/03/22 Azathioprine (Azathioprine) 75 Mg Tablet, 50 MG PO DAILY, TAB 08/03/22 Esomeprazole Magnesium (Esomeprazole Magnesium) 40 Mg Capsule.dr, 40 MG PO DAILY, CAP 08/03/22 Linaclotide (Linzess) 72 Mcg Capsule, 72 MCG PO DAILY, CAP 08/03/22 Rosuvastatin Calcium (Rosuvastatin Calcium) 5 Mg Tablet, 5 MG PO DAILY, TAB 08/03/22 Benzonatate (Benzonatate) 200 Mg Capsule, 200 MG PO TID PRN for COUGH, CAP 08/03/22 Cyclobenzaprine HCl (Cyclobenzaprine HCl) 5 Mg Tablet, 5 MG PO HS, TAB 08/03/22 Meloxicam (Meloxicam) 7.5 Mg Tablet, 7.5 MG PO DAILY, TAB 08/03/22 Past Medical History Past Medical History: Arthritis, COPD, Fibromyalgia, High Cholesterol, Hypertension, Liver Disease, Other Additional Past Medical Hx: LEFT SIDE WEAKNESS DUE TO NERVOUS SYSTEM Surgical History: Hysterectomy, Cholecystectomy, BTL PSYCH History: no pertinent psych hx Social History: Negative, Lives with family History: Not Applicable RN Note Reviewed/Agreed w/PFSH: Yes Review of System Dictation REVIEW OF SYSTEMS: CONSTITUTIONAL: Patient denies fevers, sweats and weight changes. Reports fatigue, general weakness, and chills. States she feels too weak to do anything. EYES: Patient denies any visual symptoms. EARS, NOSE, AND THROAT: No difficulties with hearing. No symptoms of rhinitis or sore throat. CARDIOVASCULAR: Patient denies chest pains, palpitations, orthopnea and paroxysmal nocturnal dyspnea. RESPIRATORY: No dyspnea on exertion, no wheezing or cough. GI: No vomiting, diarrhea, constipation, hematemesis, hematochezia or melena. Reports left sided/upper abdominal pain with nausea. Reports anorexia. : Has not had Kemp catheter in place since discharge from hospital on 03/09. States she is currently being treated with Levaquin for UTI; + ESBL MUSCULOSKELETAL: No myalgias or arthralgias. NEUROLOGIC: No chronic headaches, no seizures. Patient denies numbness, tingling or weakness. Patient has left-sided weakness and slurred speech per baseline PSYCHIATRIC: Patient denies problems with mood disturbance. No problems with anxiety. ENDOCRINE: No excessive urination or excessive thirst. DERMATOLOGIC: Patient denies any rashes or skin changes. Initial Vital Sign VS Vital Signs Date Time Temp Pulse Resp B/P (MAP) Pulse Ox O2 Delivery O2 Flow Rate FiO2 03/18/25 19:36 97.9 93 16 173/96 96 Room Air 03/18/25 20:18 0 21 Physical Exam Dictation Vital signs: Reviewed. Afebrile. Constitutional: No acute distress. Non-toxic appearing. Head/Face: Normocephalic, atraumatic. Eyes: Periorbital areas with no swelling, redness, or edema. Lids and lashes are normal. Conjunctival injection is absent. Sclera anicteric. Pupils equal, round, reactive to light. ENT: Pinnas intact and no signs of trauma or erythema. Ear canals clear and no discharge. TMs no erythema. No nasal discharge or bleeding noted. Oropharynx with no exudate, redness, swelling, masses, exudates, or evidence of obstruction. Uvula midline. Mucous membranes moist. Neck: Trachea midline, no masses palpated, and no cervical lymphadenopathy. No swelling. Supple, full range of motion. Chest/Axilla: No tenderness, no crepitus, no paradoxical movement, no retractions. Cardiovascular: Regular rate, regular rhythm, no murmur, no gallops. Symmetric pulses. No peripheral edema. Hypertensive; 173/96 Respiratory: Respirations even and unlabored. Lung sounds clear; no wheezes, rales or rhonchi. Room air spo2 98%. Gastrointestinal: Inspection is normal. No distention is appreciated. Bowel sounds are normal. No mass or organomegaly . There is no tenderness. No rebound. No rigidity. No voluntary or involuntary guarding. No Avalos's sign. : Kemp changed to bed bag with urine clear/yellow. Neurological: Normal speech, gross motor function intact, gross sensory function intact. Left-sided weakness and slightly slurred speech per baseline. Alert and oriented x4. Musculoskeletal/Extremities: All extremities have full range of motion, no pain or tenderness on palpation. Symmetric pulses. Integumentary: Intact. Skin is normal color, warm and dry. Cap refill less than 3 seconds. Results (Laboratory/Radiology) Laboratory/Radiology Laboratory Tests Test 03/18/25 19:57 03/18/25 19:58 03/18/25 20:09 Sodium Level 123 mmol/L (136-145) L Potassium Level 2.4 mmol/L (3.5-5.1) *L Chloride Level 87 mmol/L (101-111) *L Carbon Dioxide Level 29 mmol/L (21-32) Blood Urea Nitrogen 6 mg/dL (7-18) L Creatinine 0.6 mg/dL (0.5-1.0) Glomerular Filtration Rate Calc 95 mL/min (>90) Random Glucose 110 mg/dL (70-105) H Lactic Acid Level 1.1 mmol/L (0.8-2.5) Total Calcium 8.9 mg/dL (8.5-10.1) Lipase 26 U/L (16-77) White Blood Count 6.1 K/uL (4.8-10.8) Red Blood Count 3.65 MIL/uL (4.00-5.50) L Hemoglobin 10.7 g/dL (12.0-16.0) L Hematocrit 30.5 % (36-48) L Mean Corpuscular Volume 83.6 fL (79-99) Mean Corpuscular Hemoglobin 29.3 pg (27.0-33.0) Mean Corpuscular Hemoglobin Concent 35.1 g/dL (32.0-36.0) Red Cell Distribution Width 13.7 % (11.0-15.5) Platelet Count 396 K/uL (130-400) Mean Platelet Volume 8.8 fL (7.5-10.5) Immature Granulocyte % (Auto) 0.3 % (0-1) Neutrophils (%) (Auto) 66.6 % (40.0-77.0) Lymphocytes (%) (Auto) 22.4 % (21.0-51.0) Monocytes (%) (Auto) 9.5 % (3.0-13.0) Eosinophils (%) (Auto) 1.0 % (0.0-8.0) Basophils (%) (Auto) 0.2 % (0.0-5.0) Neutrophils # (Auto) 4.1 K/uL (1.8-7.7) Lymphocytes # (Auto) 1.4 K/uL (1.0-4.8) Monocytes # (Auto) 0.6 K/uL (0.1-1.0) Eosinophils # (Auto) 0.06 K/uL (0.00-0.70) Basophils # (Auto) 0.01 K/uL (0.00-0.20) Absolute Immature Granulocyte (auto 0.02 K/uL (0-1) Nucleated Red Blood Cells 0.0 % (0.0-0.19) Magnesium Level 1.40 mg/dL (1.80-2.40) L Troponin I High Sensitivity 5 ng/L (4-50) Influenza Type A Antigen Negative For Type A Influenza Type B Antigen Negative For Type B SARS-CoV-2, RNA, NAAT NEGATIVE SARS CoV-2 Urine Color COLORLESS (YELLOW) Urine Appearance CLEAR (CLEAR) Urine pH 7.0 (5.0-8.0) Urine Specific [place] 1.009 (1.001-1.031) Urine Protein NEGATIVE mg/dL (NEGATIVE) Urine Glucose (UA) NEGATIVE mg/dL (NEGATIVE) Urine Ketones NEGATIVE mg/dL (NEGATIVE) Urine Occult Blood SMALL (NEGATIVE) H Urine Nitrate NEGATIVE (NEGATIVE) Urine Bilirubin NEGATIVE mg/dL (NEGATIVE) Urine Urobilinogen 0.2 mg/dL (0.2-1.0) Urine Leukocyte Esterase 25 Steve/uL (NEGATIVE) H Urine RBC 11-25 /HPF (0-1) H Urine WBC 2-5 /HPF (0-1) H Urine Squamous Epithelial Cells RARE /HPF (0-2) Urine Bacteria None /HPF (None Seen) Urine Yeast MOD /HPF (None Seen) Urine Yeast with Hyphae FEW /HPF (None Seen) Labs Reviewed?: Yes EKG Comment: EKG Interpretation: Time Reviewed: 2100 Ventricular rate: 80 bpm CO Interval: 241 ms QRS duration: [address] segment elevation or depression. Clinical impression: Sinus rhythm EKG Reviewed and interpreted by Dr. Sisi Pal X-RAY Comment: PATIENT: CAMERON ANDREWS MR#: [id number] : 1950 SEX: F AGE: 75 LOCATION: [facility] ORDER 27 STATUS: REG ER REPORT#: [id number] SERVICE 27 REASON: WEAKNESS ORDERING PHYSICIAN: FRANCISCO JUSTICE NP PROCEDURE: CXR1VW - CHEST 1VW EXAM: CR Chest, 1 View. CLINICAL HISTORY: WEAKNESS COMPARISON: Radiograph dated March 05, 2025 FINDINGS: LUNGS: There is no mass, infiltrate, or acute pulmonary abnormality. PLEURAL SPACES: No pleural effusion or pneumothorax. MEDIASTINUM: The cardiomediastinal silhouette is within normal limits. BONES: No aggressive appearing osseous lesion seen. IMPRESSION: No acute cardiopulmonary pathology is evident. /[place] DICTATED BY: MARIEL RINCON Jr., MD DATE: 03/18/252238 ELECTRONICALLY SIGNED BY: MARIEL RINCON Jr., MD DATE: 03/18/252238 ED Course ED Course Orders Procedure Category Date Status Time Lactic Acid LAB 03/18/25 Complete 19:41 Cbc With Differential LAB 03/18/25 Complete 19:41 Basic Metabolic Panel LAB 03/18/25 Complete 19:41 Urinalysis Profile LAB 03/18/25 Complete 19:41 Troponin I High LAB 03/18/25 Complete Sensitivity 19:41 Influenza Type A & B, LAB 03/18/25 Complete Rapid 19:41 Covid Rna Naat LAB 03/18/25 Complete 19:41 Lipase LAB 03/18/25 Complete 19:41 Chest 1vw RAD 03/18/25 Resulted 20:28 Ct Abdomen/Pelvis W/O CT 03/18/25 Resulted Contrast 20:35 0.9% Nacl 250ml (Ns PHA 03/18/25 In Process 250ml) 21:00 12 Lead Ekg Tracing- EKG 03/18/25 Logged Technical 20:59 Magnesium LAB 03/18/25 Complete 21:35 Potassium Chloride PHA 03/18/25 Complete 10meq/100ml ([place] 22:00 0.9% Nacl 250ml (Ns PHA 03/18/25 Complete 250ml) 22:00 Current Medications Medications (Trade) Dose Ordered Sig/Wilfredo Route PRN Reason Start Time Stop Time Status Last Admin Dose Admin Potassium Chloride 100 ml @ 100 mls/hr ONCE ONCE IV 03/18/25 22:00 03/18/25 22:59 DC 03/18/25 22:16 Sodium Chloride 250 ml @ 0 mls/hr ONCE IV 03/18/25 21:00 03/19/25 20:59 03/18/25 20:58 Sodium Chloride 250 ml @ 0 mls/hr ONCE ONCE IV 03/18/25 22:00 03/18/25 22:01 DC 03/18/25 22:16 Vital Signs Date Time Temp Pulse Resp B/P (MAP) Pulse Ox O2 Delivery O2 Flow Rate FiO2 03/18/25 20:18 97.2 86 20 169/91 96 Room Air* 0 21 03/18/25 19:36 97.9 93 16 173/96 96 Room Air Patient remains afebrile. Alert and oriented x4. Complains of generalized weakness left upper quadrant abdominal pain. Chest x-ray unremarkable with clear lung field. 12 lead EKG reflects sinus rhythm without ST-elevation. Laboratory findings as noted below. No elevation of WBCs. H/H 10.7/30.5, K 2.4, Cl/Na 123/87, and glucose 110. UA+ blood, leukocyte esterase, and UWBC TNTC. COVID and influenza A/B negative. Previous UCX + e coli with susceptibility to Levaquin. While in the ED she received doses KCl and NS 500 mL IV as bolus. Discussed the patient with the hospitalist and he agrees to admit her to the hospital. Medical Decision Making MDM MDM: Differential diagnosis: Recurrent UTI, intra-abdominal disease, dehydration, electrolyte abnormalities Rationale: Tests considered and ordered secondary to shared decision making include: Previous outside records reviewed: Old ER visits. Risk of complication and/or morbidity or mortality of patient management: None Medications-Per medication reconciliation Need for hospitalization: Patient does meet criteria for hospitalization. Need for emergency major/minor surgery: No There are no social concerns with this patient. Prescription drug management Prescriptions will include symptomatic care Patient's prior external medical records from other ER visits were reviewed by me as indicated. Prior testing and results from previous visits were reviewed. Prior tests were taken into account with medical decision making and resource utilization, independent historian/historians were used to obtain complete medical history. I independently interpreted the test that were performed, results were reviewed by me and considered findings on radiology if ordered. DX & DISP Disposition: Inpatient Departure Impression: Primary Impression: Hyponatremia Additional Impressions: Hypokalemia, Failure to thrive in adult, E-coli UTI, Abdominal pain, left lower quadrant Condition: Stable Assign Patient to: Dr. Stephon Lim Referrals: JERZY RICHARDS MD (PCP) FRANCISCO JUSTICE NP Mar 18, 2025 19:42 AMBER PAL MD Mar 18, 2025 23:43
--- NOTE | 2025-03-18 19:45 | NUR ---
16FR GOFF CATHER PRESENT QUALITY ASSURANCE QA LAB ANALYST, PATIENT'S DAUGHTER REPORTED GOFF WAS INSERTED ABOUT 2 WEEKS AGO
[2025-03-18 20:08] LABS: IMMATURE GRANULOCYTE ABSOLUTE 0.02 K/uL (0-1); NUCLEATED RED BLOOD CELLS 0.0 % (0.0-0.19); PLATELET COUNT (AUTO) 396 K/uL (130-400); RED BLOOD CELL COUNT(AUTO) 3.65 MIL/uL (4.00-5.50); RED CELL DISTRIBUTION WIDTH 13.7 % (11.0-15.5); WHITE BLOOD COUNT (AUTO) 6.1 K/uL (4.8-10.8)
[2025-03-18 20:19] LABS: APPEARANCE,URINE CLEAR (CLEAR); GLUCOSE, URINE (UA) NEGATIVE (NEGATIVE); LEUKOCYTE ESTERASE ,URINE 25 Leu/uL (NEGATIVE); NITRATE,URINE NEGATIVE (NEGATIVE); OCCULT BLOOD,URINE SMALL (NEGATIVE)
[2025-03-18 20:20] LABS: ADD UA MICROSCOPIC YES
[2025-03-18 20:24] LABS: SARS-CoV-2, RNA, NAAT NEGATIVE SARS CoV-2 (NEGATIVE)
[2025-03-18 20:24] LABS: SQUAMOUS EPITHELIAL CELL,UR RARE /HPF (0-2); YEAST,URINE BUDDING MOD /HPF (None Seen); YEAST,URINE HYPHAE FEW /HPF (None Seen)
[2025-03-18 20:25] LABS: CREATININE 0.6 mg/dL (0.5-1.0); GLOMERULAR FILTR. RATE CALC 95.0 mL/min (>90); GLUCOSE,RANDOM 110.0 mg/dL (70-105); SODIUM SERUM 123.0 mmol/L (136-145); UREA NITROGEN, BLOOD 6.0 mg/dL (7-18)
[2025-03-18 20:30] LABS: INFLUENZA TYPE A Negative For Type A (NEGATIVE); INFLUENZA TYPE B Negative For Type B (NEGATIVE)
[2025-03-18] MEDS: 0.9% NACL 250ML 250 ML IV SCH (20:58)
--- NOTE | 2025-03-18 21:40 | HMCIMG ---
EXAM: CR Chest, 1 View. CLINICAL HISTORY: WEAKNESS COMPARISON: Radiograph dated March 05, 2025 FINDINGS: LUNGS: There is no mass, infiltrate, or acute pulmonary abnormality. PLEURAL SPACES: No pleural effusion or pneumothorax. MEDIASTINUM: The cardiomediastinal silhouette is within normal limits. BONES: No aggressive appearing osseous lesion seen. IMPRESSION: No acute cardiopulmonary pathology is evident. /[place]
[2025-03-18] MEDS: 0.9% NACL 250ML 250 ML IV ONE (22:16)
[2025-03-18] MEDS ORDERED: BACL10TA PO (22:47)
[2025-03-18] MEDS ORDERED: HYDR-3421 PO (22:47)
--- NOTE | 2025-03-18 23:09 | HMCIMG ---
EXAM: CT Abdomen and Pelvis Without IV contrast CLINICAL HISTORY: The patient presents with abdominal pain and vomiting. TECHNIQUE: Axial computed tomography images of the abdomen and pelvis without intravenous contrast. CONTRAST: No IV contrast. COMPARISON: Prior CT abdomen and pelvis without contrast dated 03/06/25. FINDINGS: LUNG BASES: The lung bases appear clear. No pleural effusions are seen. LIVER: Unremarkable. GALLBLADDER AND BILE DUCTS: Status post cholecystectomy. PANCREAS: The pancreas appears mildly atrophic with a mildly prominent pancreatic duct. No obvious calcification is present. SPLEEN: Unremarkable. ADRENAL GLANDS: Unremarkable. KIDNEYS, URETERS, AND BLADDER: The kidneys show bilateral extrarenal pelvis. The kidneys appear within normal limits otherwise. There is no hydronephrosis or hydroureter. Interval resolution of the right perinephric fat stranding. There is a questionable hyperdense cyst at the mid-pole of the right kidney. No urinary calculi are seen. Unremarkable urinary bladder with Kemp's bulb in place. STOMACH AND BOWEL: No abnormal bowel wall thickening. No evidence of bowel obstruction. Uncomplicated colonic diverticulosis. Mild constipation. APPENDIX: No evidence of acute appendicitis on CT examination. PERITONEUM: No free fluid. No free air. LYMPH NODES: No lymphadenopathy is evident. REPRODUCTIVE: Status post hysterectomy and bilateral salpingo-oophorectomy. VASCULATURE: Diffuse calcification involves the abdominal aorta and iliac vessels. A left iliac stent is present. No evidence of abdominal aortic aneurysm. ABDOMINAL WALL: Small fat containing umbilical hernia. BONES: The lumbar spine shows severe spondylotic changes with S-shaped scoliosis. No aggressive appearing osseous lesion. No acute osseous pathology is evident. IMPRESSION: No acute abdominal or pelvic abnormality. Interval resolution of the right perinephric fat stranding. Stable questionable hyperdense cyst at the mid-pole of the right kidney. Pancreatic atrophy with mildly prominent pancreatic duct. Status post-cholecystectomy and post-hysterectomy with bilateral salpingo-oophorectomy. Small fat containing umbilical hernia. Uncomplicated colonic diverticulosis. Mild constipation. Advanced thoracolumbar spondylosis with S-shaped scoliosis. Diffuse calcification of the abdominal aorta and iliac vessels, with a left iliac stent present. Compared with the prior CT abdomen and pelvis without contrast dated 03/06/25, there is interval resolution of right perinephric fat stranding. The remaining findings are relatively stable. /[place]
[2025-03-18] MEDS: MAGNESIUM 2GM PREMIX 50ML 50 ML IV SCH (23:51)
--- NOTE | 2025-03-19 00:01 | HP ---
[facility] HISTORY & PHYSICAL Date Patient Seen: Mar 18, 2025 Time of Visit: 23:59 Supervising Physician: Dr. Jamie Lim Primary Care Physician: Dr Dunn Outpatient Specialists: [ ] Inpatient Consults: [ ] PROBLEM LIST: Acute complicated cystitis, POA Hypokalemia, POA Hypomagnesemia, POA Hyponatremia, POA Neurogenic bladder, has chronic Kemp, POA Constipation, POA Hypertension, POA COPD without exacerbation, POA Chronic Normocytic anemia, POA PLAN: Admit To medical-surgical floor with telemetry VS per unit protocol Start IV Zosyn Treat fever aggressively Monitor temperature curve Change Kemp catheter Replete electrolyte Continue cardiac monitoring Continue IV fluids Aspiration precautions Keep head of bed above 30 Incentive spirometry Bilateral SCDs CBC, CMP, magnesium level daily HPI: 75-year-old female with past medical history of hypertension, COPD, chronic anemia, neurogenic bladder s/p Kemp catheter insertion, recent UTI, who presented to ED via private vehicle with complaint of generalized body weakness with an associated abdominal pain and found to have hypokalemia, hyponatremia, hypomagnesemia, and urinary tract infection. Apparently patient was recently discharged from this hospital two weeks ago with similar complaint. She came again today with complaint of poor appetite, and feeling unwell. Workup done in ED CBC showed chronic anemia, however her CMP showed multiple electrolyte imbalances. Her UA also consistent with persistent urinary tract infection. CT of the abdomen unremarkable for any acute intra-abdominal process, as well as unremarkable chest x-ray. Patient was seen and examined in ED with family member present at bedside. At present patient is currently hemodynamically stable, on room air with appropriate oxygen saturation, normal sinus rhythm on the monitor, GCS 15, and some tenderness on left upper and lower abdomen on palpation. Patient denies any headache, chest pain, shortness of breath, complains of generalized body weakness and poor appetite. In ED patient was initiated on IV fluids and started on IV Zosyn. PAST MEDICAL HX: see above PAST SURGICAL HX: See HPI SOCIAL HISTORY: No tobacco, ETOH, or illicit drug use Coded Allergies: No Known Drug Allergies (Unverified Allergy, Unknown, 08/16/14) REVIEW OF SYSTEMS: 12 point ROS reviewed with patient. Pertinent positives mentioned above. Otherwise negative. PHYSICAL EXAM: GENERAL: alert, weak, awake oriented x 3 HEENT: EOMI, Sclera non icteric, moist mucosa NECK: Supple, no JVD, trachea midline LUNGS: Clear breath sounds bilaterally. No wheezes HEART: Regular rate and rhythm. Normal S1 and S2, without murmurs ABD: Tenderness on left upper and lower abdomen on palpation EXT: No clubbing cyanosis or edema NEURO: Alert and oriented to person, follows commands Vital Signs (last 8hr) Date Time Temp Pulse Resp B/P (MAP) Pulse Ox O2 Delivery O2 Flow Rate FiO2 03/18/25 20:18 97.2 86 20 169/91 96 Room Air* 0 21 03/18/25 19:36 97.9 93 16 173/96 96 Room Air LABS: Hematology Labs: Test 03/18/25 19:58 Range/Units White Blood Count 6.1 4.8-10.8 K/uL Red Blood Count 3.65 L 4.00-5.50 MIL/uL Hemoglobin 10.7 L 12.0-16.0 g/dL Hematocrit 30.5 L 36-48 % Mean Corpuscular Volume 83.6 79-99 fL Mean Corpuscular Hemoglobin 29.3 27.0-33.0 pg Mean Corpuscular Hemoglobin Concent 35.1 32.0-36.0 g/dL Red Cell Distribution Width 13.7 11.0-15.5 % Platelet Count 396 130-400 K/uL Mean Platelet Volume 8.8 7.5-10.5 fL Immature Granulocyte % (Auto) 0.3 0-1 % Neutrophils (%) (Auto) 66.6 40.0-77.0 % Lymphocytes (%) (Auto) 22.4 21.0-51.0 % Monocytes (%) (Auto) 9.5 3.0-13.0 % Eosinophils (%) (Auto) 1.0 0.0-8.0 % Basophils (%) (Auto) 0.2 0.0-5.0 % Neutrophils # (Auto) 4.1 1.8-7.7 K/uL Lymphocytes # (Auto) 1.4 1.0-4.8 K/uL Monocytes # (Auto) 0.6 0.1-1.0 K/uL Eosinophils # (Auto) 0.06 0.00-0.70 K/uL Basophils # (Auto) 0.01 0.00-0.20 K/uL Absolute Immature Granulocyte (auto 0.02 0-1 K/uL Nucleated Red Blood Cells 0.0 0.0-0.19 % Chemistry Labs: Test 03/18/25 19:58 03/18/25 19:57 Range/Units Magnesium Level 1.40 L 1.80-2.40 mg/dL Troponin I High Sensitivity 5 4-50 ng/L Sodium Level 123 L 136-145 mmol/L Potassium Level 2.4 *L 3.5-5.1 mmol/L Chloride Level 87 *L 101-111 mmol/L Carbon Dioxide Level 29 21-32 mmol/L Blood Urea Nitrogen 6 L 7-18 mg/dL Creatinine 0.6 0.5-1.0 mg/dL Glomerular Filtration Rate Calc 95 >90 mL/min Random Glucose 110 H 70-105 mg/dL Lactic Acid Level 1.1 0.8-2.5 mmol/L Total Calcium 8.9 8.5-10.1 mg/dL Lipase 26 16-77 U/L DIAGNOSTICS / RADIOLOGY RESULTS: EXAM: CR Chest, 1 View. CLINICAL HISTORY: WEAKNESS COMPARISON: Radiograph dated March 05, 2025 FINDINGS: LUNGS: There is no mass, infiltrate, or acute pulmonary abnormality. PLEURAL SPACES: No pleural effusion or pneumothorax. MEDIASTINUM: The cardiomediastinal silhouette is within normal limits. BONES: No aggressive appearing osseous lesion seen. IMPRESSION: No acute cardiopulmonary pathology is evident. PLAN NEURO: Minimize central acting medications as possible. Maintain fall precautions, adequate lighting during the day PULMONARY: Supplemental 02 as needed. Maintain aspiration precautions at all times CARDIOVASCULAR: Follow hemodynamics. Vital signs per facility protocol GI & NUTRITION: Continue with nutritional support. Continue stool softeners and laxatives as needed. KIDNEYS & ELECTROLYTES: Strict monitoring of intake, output and overall fluid balance. Avoid nephrotoxic medications to the extent possible. Medications to be dosed according to renal function. Monitor electrolytes and replace as needed ENDOCRINE: Maintain blood glucose between 100-180 at all times. Hypoglycemia protocol in place INFECTIOUS DISEASE: Trend temperature, WBC and procalcitonin level Follow cultures, deescalate antibiotics as soon as possible. Panculture if new onset fever ONCOLOGY/HEMATOLOGY/COAGULATION: Monitor for s/s of bleeding Monitor hemoglobin, coagulation studies as needed SKIN: Pressure ulcer prevention per facility protocol Specialty mattress ORTHO/REHAB: Continue PT/OT Prophylaxis: Continue GI and DVT prophylaxis Code Status: Full Resuscitation Disposition: TBD Supervising physician: BELKYS Romano APRN Mar 19, 2025 00:01
--- NOTE | 2025-03-19 00:15 | NUR ---
NONOG NUMBERER AND WIRER AT BEDSIDE
[2025-03-19] MEDS ORDERED: HYDROcodone/APAP 5/325 1 TAB TABLET PO PRN (00:30)
[2025-03-19] MEDS ORDERED: ALBUTEROL 0.083% 2.5 MG/3 ML INH IH PRN (00:30)
[2025-03-19] MEDS: 0.9%NACL 1000ML 1,000 ML IV SCH (00:50)
[2025-03-19] MEDS: ZOSYN 3.375GM +NS 50ML IV SCH (01:08)
--- NOTE | 2025-03-19 01:28 | NUR ---
Megan quesada in [facility] - 03/19/25 at 0145 by KIERRA NELL JOHNSON)
--- NOTE | 2025-03-19 01:28 | NUR ---
NELL BOSS ([facility])
[2025-03-19 02:21] LABS: APPEARANCE,URINE CLEAR (CLEAR); GLUCOSE, URINE (UA) NEGATIVE (NEGATIVE); LEUKOCYTE ESTERASE ,URINE NEGATIVE Leu/uL (NEGATIVE); NITRATE,URINE NEGATIVE (NEGATIVE); OCCULT BLOOD,URINE NEGATIVE (NEGATIVE)
[2025-03-19 02:22] LABS: ADD UA MICROSCOPIC NO
[2025-03-19 07:16] LABS: CREATININE 0.6 mg/dL (0.5-1.0); GLOMERULAR FILTR. RATE CALC 95.0 mL/min (>90); GLUCOSE,RANDOM 97.0 mg/dL (70-105); SODIUM SERUM 137.0 mmol/L (136-145); UREA NITROGEN, BLOOD 4.0 mg/dL (7-18)
--- NOTE | 2025-03-19 08:06 | EKG ---
[facility] Test Date: 2025-03-18 Test Time: 21:01:18 Pat Name: CAMERON REESE Department: [facility] Room: ED 16 Gender: F Front End Mechanic: [id number] : 1950 Requested By: FRANCISCO JUSTICE Order Number: [id number] Reading MD: Hansel Pacheco Measurements Intervals [place] Rate: 80 P: 61 MN: 241 QRS: -42 QRSD: 88 T: 49 QT: 416 QTc: 480 Interpretive Statements Sinus rhythm Prolonged MN interval Left axis deviation Compared to ECG 03/05/2025 18:15:57 First degree AV block now present Electronically Signed On 03-19-2025 16:04:14 CDT by Hansel Pacheco Please click the below link to view image of tracing.
[2025-03-19 08:21] LABS: IMMATURE GRANULOCYTE ABSOLUTE 0.01 K/uL (0-1); NUCLEATED RED BLOOD CELLS 0.0 % (0.0-0.19); PLATELET COUNT (AUTO) 429 K/uL (130-400); RED BLOOD CELL COUNT(AUTO) 4.20 MIL/uL (4.00-5.50); RED CELL DISTRIBUTION WIDTH 14.0 % (11.0-15.5); WHITE BLOOD COUNT (AUTO) 4.1 K/uL (4.8-10.8)
[2025-03-19] MEDS: FERROUS SULFATE 325 MG TABLET.DR PO SCH (09:01)
[2025-03-19] MEDS: ASCORBIC ACID 500 MG TAB PO SCH (09:01)
--- NOTE | 2025-03-19 14:32 | PN ---
[facility] PROGRESS NOTE Date Patient Seen: Mar 19, 2025 Time of Visit: 14:31 Supervising Physician: Dr. Jamie Lim Primary Care Physician: Dr Dunn Outpatient Specialists: [ ] Inpatient Consults: [ ] PROBLEM LIST: Acute complicated cystitis, POA Neurogenic bladder, has chronic Kemp, POA Electrolyte derangement syndrome: Hypokalemia,Hypomagnesemia, & Hyponatremia, denies CHRONIC PROBLEM LIST: Constipation Hypertension COPD without exacerbation, Chronic Normocytic anemia, PLAN: Admit To medical-surgical floor with telemetry VS per unit protocol Start IV Zosyn Treat fever aggressively Monitor temperature curve Change Kemp catheter Replete electrolyte Continue cardiac monitoring Continue IV fluids Aspiration precautions Keep head of bed above 30 Incentive spirometry Bilateral SCDs CBC, CMP, magnesium level daily INTERVAL HISTORY: 75-year-old female with past medical history of hypertension, COPD, chronic anemia, neurogenic bladder s/p Kemp catheter insertion, recent UTI, who presented to ED via private vehicle with complaint of generalized body weakness with an associated abdominal pain and found to have hypokalemia, hyponatremia, hypomagnesemia, and urinary tract infection. Apparently patient was recently discharged from this hospital two weeks ago with similar complaint. She came again today with complaint of poor appetite, and feeling unwell. Workup done in ED CBC showed chronic anemia, however her CMP showed multiple electrolyte imbalances. Her UA also consistent with persistent urinary tract infection. CT of the abdomen unremarkable for any acute intra-abdominal process, as well as unremarkable chest x-ray. Patient was seen and examined in ED with family member present at bedside. At present patient is currently hemodynamically stable, on room air with appropriate oxygen saturation, normal sinus rhythm on the monitor, GCS 15, and some tenderness on left upper and lower abdomen on palpation. Patient denies any headache, chest pain, shortness of breath, complains of generalized body weakness and poor appetite. 03/19-patient is seen and assessed while resting in bed lying in a high Sibley's position watching television friendly and conversant located in ED bed 13.atient is awake and alert friendly with no family members present. Reviewed and discussed laboratory results, vital signs, diagnostic tests results. Patient reports having acute complicated cystitis back in February with two presentation so in the emergency department for it. A challenge is that the patient has a Kemp catheter status post neurogenic bladder which increases the occurrence of having a UTI. Patient has been started on Zosyn antibiotic therapy, patient's personal home medications has been reviewed and reconciled. And awaiting urine culture results. REVIEW OF SYSTEMS: 12 point ROS reviewed with patient. Pertinent positives mentioned above. Otherwise negative. PHYSICAL EXAM: GENERAL: alert, weak, awake oriented x 3 HEENT: EOMI, Sclera non icteric, moist mucosa NECK: Supple, no JVD, trachea midline LUNGS: Clear breath sounds bilaterally. No wheezes HEART: Regular rate and rhythm. Normal S1 and S2, without murmurs ABD: Tenderness on left upper and lower abdomen on palpation EXT: No clubbing cyanosis or edema NEURO: Alert and oriented to person, follows commands Vital Signs (last 8hr) Date Time Temp Pulse Resp B/P (MAP) Pulse Ox O2 Delivery O2 Flow Rate FiO2 03/19/25 11:30 98.1 83 16 145/71 95 Room Air* 0 21 03/19/25 07:30 98.1 64 20 111/52 95 Room Air* 0 21 LABS: Hematology Labs: Test 03/19/25 06:32 Range/Units White Blood Count 4.1 #L 4.8-10.8 K/uL Red Blood Count 4.20 4.00-5.50 MIL/uL Hemoglobin 12.4 12.0-16.0 g/dL Hematocrit 36.0 36-48 % Mean Corpuscular Volume 85.7 79-99 fL Mean Corpuscular Hemoglobin 29.5 27.0-33.0 pg Mean Corpuscular Hemoglobin Concent 34.4 32.0-36.0 g/dL Red Cell Distribution Width 14.0 11.0-15.5 % Platelet Count 429 H 130-400 K/uL Mean Platelet Volume 9.2 7.5-10.5 fL Immature Granulocyte % (Auto) 0.2 0-1 % Neutrophils (%) (Auto) 51.1 40.0-77.0 % Lymphocytes (%) (Auto) 34.1 21.0-51.0 % Monocytes (%) (Auto) 11.9 3.0-13.0 % Eosinophils (%) (Auto) 2.2 0.0-8.0 % Basophils (%) (Auto) 0.5 0.0-5.0 % Neutrophils # (Auto) 2.1 1.8-7.7 K/uL Lymphocytes # (Auto) 1.4 1.0-4.8 K/uL Monocytes # (Auto) 0.5 0.1-1.0 K/uL Eosinophils # (Auto) 0.09 0.00-0.70 K/uL Basophils # (Auto) 0.02 0.00-0.20 K/uL Absolute Immature Granulocyte (auto 0.01 0-1 K/uL Nucleated Red Blood Cells 0.0 0.0-0.19 % Chemistry Labs: Test 03/19/25 13:20 03/19/25 06:32 03/18/25 19:58 03/18/25 19:57 Range/Units Whole Blood Glucose 138 H 70-110 MG/DL Sodium Level 137 136-145 mmol/L Potassium Level 4.0 3.5-5.1 mmol/L Chloride Level 103 101-111 mmol/L Carbon Dioxide Level 30 21-32 mmol/L Blood Urea Nitrogen 4 L 7-18 mg/dL Creatinine 0.6 0.5-1.0 mg/dL Glomerular Filtration Rate Calc 95 >90 mL/min Random Glucose 97 70-105 mg/dL Total Calcium 8.9 8.5-10.1 mg/dL Magnesium Level 2.10 1.80-2.40 mg/dL Troponin I High Sensitivity 5 4-50 ng/L Lactic Acid Level 1.1 0.8-2.5 mmol/L Lipase 26 16-77 U/L DIAGNOSTICS / RADIOLOGY RESULTS: [ ] PLAN NEURO: Minimize central acting medications as possible. Maintain fall precautions, adequate lighting during the day PULMONARY: Supplemental 02 as needed. Maintain aspiration precautions at all times CARDIOVASCULAR: Follow hemodynamics. Vital signs per facility protocol GI & NUTRITION: Continue with nutritional support. Continue stool softeners and laxatives as needed. KIDNEYS & ELECTROLYTES: Strict monitoring of intake, output and overall fluid balance. Avoid nephrotoxic medications to the extent possible. Medications to be dosed according to renal function. Monitor electrolytes and replace as needed ENDOCRINE: Maintain blood glucose between 100-180 at all times. Hypoglycemia protocol in place INFECTIOUS DISEASE: Trend temperature, WBC and procalcitonin level Follow cultures, deescalate antibiotics as soon as possible. Panculture if new onset fever ONCOLOGY/HEMATOLOGY/COAGULATION: Monitor for s/s of bleeding Monitor hemoglobin, coagulation studies as needed SKIN: Pressure ulcer prevention per facility protocol Specialty mattress ORTHO/REHAB: Continue PT/OT Prophylaxis: Continue GI and DVT prophylaxis Code Status: Full Resuscitation Disposition: MIGUEL ANGEL CALDERON NP Mar 19, 2025 14:32
--- NOTE | 2025-03-19 14:37 | PN ---
[facility] PROGRESS NOTE Date Patient Seen: Mar 19, 2025 Time of Visit: 14:37 Supervising Physician: [ ] Primary Care Physician: Dr Dunn Outpatient Specialists: [ ] Inpatient Consults: [ ] PROBLEM LIST: Acute complicated cystitis, POA Hypokalemia, POA Hypomagnesemia, POA Hyponatremia, POA Neurogenic bladder, has chronic Kemp, POA Constipation, POA Hypertension, POA COPD without exacerbation, POA Chronic Normocytic anemia, POA PLAN: Admit To medical-surgical floor with telemetry VS per unit protocol Start IV Zosyn Treat fever aggressively Monitor temperature curve Change Kemp catheter Replete electrolyte Continue cardiac monitoring Continue IV fluids Aspiration precautions Keep head of bed above 30 Incentive spirometry Bilateral SCDs CBC, CMP, magnesium level daily INTERVAL HISTORY: [ ] REVIEW OF SYSTEMS: 12 point ROS reviewed with patient. Pertinent positives mentioned above. Otherwise negative. PHYSICAL EXAM: GENERAL: alert, weak, awake oriented x 3 HEENT: EOMI, Sclera non icteric, moist mucosa NECK: Supple, no JVD, trachea midline LUNGS: Clear breath sounds bilaterally. No wheezes HEART: Regular rate and rhythm. Normal S1 and S2, without murmurs ABD: Tenderness on left upper and lower abdomen on palpation EXT: No clubbing cyanosis or edema NEURO: Alert and oriented to person, follows commands Vital Signs (last 8hr) Date Time Temp Pulse Resp B/P (MAP) Pulse Ox O2 Delivery O2 Flow Rate FiO2 03/19/25 11:30 98.1 83 16 145/71 95 Room Air* 0 21 03/19/25 07:30 98.1 64 20 111/52 95 Room Air* 0 21 LABS: Hematology Labs: Test 03/19/25 06:32 Range/Units White Blood Count 4.1 #L 4.8-10.8 K/uL Red Blood Count 4.20 4.00-5.50 MIL/uL Hemoglobin 12.4 12.0-16.0 g/dL Hematocrit 36.0 36-48 % Mean Corpuscular Volume 85.7 79-99 fL Mean Corpuscular Hemoglobin 29.5 27.0-33.0 pg Mean Corpuscular Hemoglobin Concent 34.4 32.0-36.0 g/dL Red Cell Distribution Width 14.0 11.0-15.5 % Platelet Count 429 H 130-400 K/uL Mean Platelet Volume 9.2 7.5-10.5 fL Immature Granulocyte % (Auto) 0.2 0-1 % Neutrophils (%) (Auto) 51.1 40.0-77.0 % Lymphocytes (%) (Auto) 34.1 21.0-51.0 % Monocytes (%) (Auto) 11.9 3.0-13.0 % Eosinophils (%) (Auto) 2.2 0.0-8.0 % Basophils (%) (Auto) 0.5 0.0-5.0 % Neutrophils # (Auto) 2.1 1.8-7.7 K/uL Lymphocytes # (Auto) 1.4 1.0-4.8 K/uL Monocytes # (Auto) 0.5 0.1-1.0 K/uL Eosinophils # (Auto) 0.09 0.00-0.70 K/uL Basophils # (Auto) 0.02 0.00-0.20 K/uL Absolute Immature Granulocyte (auto 0.01 0-1 K/uL Nucleated Red Blood Cells 0.0 0.0-0.19 % Chemistry Labs: Test 03/19/25 13:20 03/19/25 06:32 03/18/25 19:58 03/18/25 19:57 Range/Units Whole Blood Glucose 138 H 70-110 MG/DL Sodium Level 137 136-145 mmol/L Potassium Level 4.0 3.5-5.1 mmol/L Chloride Level 103 101-111 mmol/L Carbon Dioxide Level 30 21-32 mmol/L Blood Urea Nitrogen 4 L 7-18 mg/dL Creatinine 0.6 0.5-1.0 mg/dL Glomerular Filtration Rate Calc 95 >90 mL/min Random Glucose 97 70-105 mg/dL Total Calcium 8.9 8.5-10.1 mg/dL Magnesium Level 2.10 1.80-2.40 mg/dL Troponin I High Sensitivity 5 4-50 ng/L Lactic Acid Level 1.1 0.8-2.5 mmol/L Lipase 26 16-77 U/L DIAGNOSTICS / RADIOLOGY RESULTS: [ ] PLAN NEURO: Minimize central acting medications as possible. Maintain fall precautions, adequate lighting during the day PULMONARY: Supplemental 02 as needed. Maintain aspiration precautions at all times CARDIOVASCULAR: Follow hemodynamics. Vital signs per facility protocol GI & NUTRITION: Continue with nutritional support. Continue stool softeners and laxatives as needed. KIDNEYS & ELECTROLYTES: Strict monitoring of intake, output and overall fluid balance. Avoid nephrotoxic medications to the extent possible. Medications to be dosed according to renal function. Monitor electrolytes and replace as needed ENDOCRINE: Maintain blood glucose between 100-180 at all times. Hypoglycemia protocol in place INFECTIOUS DISEASE: Trend temperature, WBC and procalcitonin level Follow cultures, deescalate antibiotics as soon as possible. Panculture if new onset fever ONCOLOGY/HEMATOLOGY/COAGULATION: Monitor for s/s of bleeding Monitor hemoglobin, coagulation studies as needed SKIN: Pressure ulcer prevention per facility protocol Specialty mattress ORTHO/REHAB: Continue PT/OT Prophylaxis: Continue GI and DVT prophylaxis Code Status: Full Resuscitation Disposition: MIGUEL ANGEL CALDERON NP Mar 19, 2025 14:37
[2025-03-19 18:24] VITALS: PULSE 95; RESP 16; O2SAT 97
--- NOTE | 2025-03-19 18:44 | NUR ---
INITIAL/DCP Met w pt at the bedside to discuss dcp. Information obtained from pt however she also requests that CM speak w her grandson Alex Guerrero @ [phone]. Prior to admission pt was living alone. She uses a cane for ambulation and requires assist from provider for ADLs. She receives approx 25hrs of provider service thru [facility]. Her preferred pharmacy is [facility] on [address]. DME: wc, sh chair and cane. Per Alex pt has had a decline in mobility and may consider short term rehab. Discussed SNF he mentions that he would prefer something like [facility] so that pt can receive 3hrs of therapy vs 30min-1hr per day. Discussed IRU requirements he mentions will discuss w . Addendum: 03/19/25 at 1848 by SHILPA MARSH CM Amended: Links added.
--- NOTE | 2025-03-19 19:21 | NUR ---
PT CARE ASSUMED AT THIS TIME
--- NOTE | 2025-03-19 21:22 | NUR ---
ATTEMPT TO GIVE REPORT AT THIS TIME. NOT SUCCESSFUL.
--- NOTE | 2025-03-19 22:08 | NUR ---
REPORT GIVEN TO PHIL TEJEDA AT THIS TIME
[2025-03-19 22:25] VITALS: BP 135/78; PULSE 73; RESP 18; TEMP 98.4; O2SAT 97
[2025-03-20] VITALS (10 sets, daily range): BP systolic 118–160; BP diastolic 62–87; PULSE 66–90; RESP 16–20; TEMP 97.5–98.5; O2SAT 98–100
[2025-03-20 06:36] LABS: IMMATURE GRANULOCYTE ABSOLUTE 0.01 K/uL (0-1); NUCLEATED RED BLOOD CELLS 0.0 % (0.0-0.19); PLATELET COUNT (AUTO) 399 K/uL (130-400); RED BLOOD CELL COUNT(AUTO) 3.79 MIL/uL (4.00-5.50); RED CELL DISTRIBUTION WIDTH 14.3 % (11.0-15.5); WHITE BLOOD COUNT (AUTO) 5.4 K/uL (4.8-10.8)
[2025-03-20 07:03] LABS: CREATININE 0.7 mg/dL (0.5-1.0); GLOMERULAR FILTR. RATE CALC 91.0 mL/min (>90); GLUCOSE,RANDOM 90.0 mg/dL (70-105); PHOSPHORUS 2.5 mg/dL (2.5-4.9); SODIUM SERUM 139.0 mmol/L (136-145); UREA NITROGEN, BLOOD 4.0 mg/dL (7-18)
[2025-03-20] MEDS ORDERED: HYDROcodone/APAP 5/325 1 TAB TABLET PO PRN (08:00)
--- NOTE | 2025-03-20 12:20 | PN ---
[facility] PROGRESS NOTE Date Patient Seen: Mar 20, 2025 Time of Visit: 12:20 Supervising Physician: Dr. Leonel Oseguera Primary Care Physician: Dr Dunn Outpatient Specialists: [ ] Inpatient Consults: [ ] PROBLEM LIST: Acute complicated cystitis secondary long-term Kemp catheter usage, neurogenic bladder, POA Electrolyte disturbance syndrome: Hypokalemia, Hyponatremia, & Hypomagnesemia , POA Moderate protein calorie malnutrition, POA CHRONIC PROBLEM LIST: Hypertension Constipation chronic COPD Chronic normocytic anemia PLAN: Admit To medical-surgical floor with telemetry VS per unit protocol Urine culture results: (+) Yeast, not Jeimy albicans ABS: Fluconazole Physical therapy to evaluate treat with discharge recommendations: Patient has had multiple falls prior to admission IV fluid has been discontinued, patient is tolerating p.o. well Aspiration precautions Keep head of bed above 30 Incentive spirometry Bilateral SCDs CBC, CMP, magnesium level daily INTERVAL HISTORY: 75-year-old female with past medical history of hypertension, COPD, chronic anemia, neurogenic bladder s/p Kemp catheter insertion, recent UTI, who presented to ED via private vehicle with complaint of generalized body weakness with an associated abdominal pain and found to have hypokalemia, hyponatremia, hypomagnesemia, and urinary tract infection. Apparently patient was recently discharged from this hospital two weeks ago with similar complaint. She came again today with complaint of poor appetite, and feeling unwell. Workup done in ED CBC showed chronic anemia, however her CMP showed multiple electrolyte imbalances. Her UA also consistent with persistent urinary tract infection. CT of the abdomen unremarkable for any acute intra-abdominal process, as well as unremarkable chest x-ray. Patient was seen and examined in ED with family member present at bedside. At present patient is currently hemodynamically stable, on room air with appropriat e oxygen saturation, normal sinus rhythm on the monitor, GCS 15, and some tenderness on left upper and lower abdomen on palpation. Patient denies any headache, chest pain, shortness of breath, complains of generalized body weakness and poor appetite. 03/19-patient is seen and assessed while resting in bed lying in a high Sibley's position watching television friendly and conversant located in ED bed 13.atient is awake and alert friendly with no family members present. Reviewed and discussed laboratory results, vital signs, diagnostic tests results. Patient reports having acute complicated cystitis back in February with two presentation so in the emergency department for it. A challenge is that the patient has a Kemp catheter status post neurogenic bladder which increases the occurrence of having a UTI. Patient has been started on Zosyn antibiotic therapy, patient's personal home medications has been reviewed and reconciled. And awaiting urine culture results. 03/20-Assessed assess and seen the patient while resting in bed with head of the bed elevated friendly and conversant, the patient is sitting in a chair outside the bed with her grandson present. The patient denies acute distress, chest pain, shortness of the breath, fever, chills, nauseousness, diarrhea currently. The grandson who assist his grandmother while working, sed has had multiple falls in the past month. PT will evaluate treat with discharge recommendations. Case management, to assist with discharge planning, PT we will evaluate treat with discharge recommendations, either SNF or home, home and if DME required please assist in expedite discharge process. Antibiotic therapy: Fluconazole urine culture positive for yeast. REVIEW OF SYSTEMS: 12 point ROS reviewed with patient. Pertinent positives mentioned above. Otherwise negative. PHYSICAL EXAM: GENERAL: alert, weak, awake oriented x 3 HEENT: EOMI, Sclera non icteric, moist mucosa NECK: Supple, no JVD, trachea midline LUNGS: Clear breath sounds bilaterally. No wheezes HEART: Regular rate and rhythm. Normal S1 and S2, without murmurs ABD: Tenderness on left upper and lower abdomen on palpation EXT: No clubbing cyanosis or edema NEURO: Alert and oriented to person, follows commands Vital Signs (last 8hr) Date Time Temp Pulse Resp B/P (MAP) Pulse Ox O2 Delivery O2 Flow Rate FiO2 03/20/25 11:43 98.2 75 18 133/82 98 Room Air 21 03/20/25 08:20 69 16 N/A Room Air 21 03/20/25 08:00 97.5 72 19 160/87 98 Room Air 21 LABS: Hematology Labs: Test 03/20/25 06:15 Range/Units White Blood Count 5.4 # 4.8-10.8 K/uL Red Blood Count 3.79 L 4.00-5.50 MIL/uL Hemoglobin 11.3 L 12.0-16.0 g/dL Hematocrit 32.4 L 36-48 % Mean Corpuscular Volume 85.5 79-99 fL Mean Corpuscular Hemoglobin 29.8 27.0-33.0 pg Mean Corpuscular Hemoglobin Concent 34.9 32.0-36.0 g/dL Red Cell Distribution Width 14.3 11.0-15.5 % Platelet Count 399 130-400 K/uL Mean Platelet Volume 8.9 7.5-10.5 fL Immature Granulocyte % (Auto) 0.2 0-1 % Neutrophils (%) (Auto) 56.0 40.0-77.0 % Lymphocytes (%) (Auto) 30.1 21.0-51.0 % Monocytes (%) (Auto) 10.9 3.0-13.0 % Eosinophils (%) (Auto) 2.2 0.0-8.0 % Basophils (%) (Auto) 0.6 0.0-5.0 % Neutrophils # (Auto) 3.0 1.8-7.7 K/uL Lymphocytes # (Auto) 1.6 1.0-4.8 K/uL Monocytes # (Auto) 0.6 0.1-1.0 K/uL Eosinophils # (Auto) 0.12 0.00-0.70 K/uL Basophils # (Auto) 0.03 0.00-0.20 K/uL Absolute Immature Granulocyte (auto 0.01 0-1 K/uL Nucleated Red Blood Cells 0.0 0.0-0.19 % Chemistry Labs: Test 03/20/25 10:39 03/20/25 06:15 03/18/25 19:58 03/18/25 19:57 Range/Units Whole Blood Glucose 112 H 70-110 MG/DL Bedside Glucose Comment Notified Nurse Sodium Level 139 136-145 mmol/L Potassium Level 2.9 *L 3.5-5.1 mmol/L Chloride Level 102 101-111 mmol/L Carbon Dioxide Level 31 21-32 mmol/L Blood Urea Nitrogen 4 L 7-18 mg/dL Creatinine 0.7 0.5-1.0 mg/dL Glomerular Filtration Rate Calc 91 >90 mL/min Random Glucose 90 70-105 mg/dL Total Calcium 8.6 8.5-10.1 mg/dL Phosphorus Level 2.5 2.5-4.9 mg/dL Magnesium Level 1.60 L 1.80-2.40 mg/dL Thyroid Stimulating Hormone (TSH) 3.08 # 0.36-3.74 uIU/mL Troponin I High Sensitivity 5 4-50 ng/L Lactic Acid Level 1.1 0.8-2.5 mmol/L Lipase 26 16-77 U/L DIAGNOSTICS / RADIOLOGY RESULTS: [ ] PLAN NEURO: Minimize central acting medications as possible. Maintain fall precautions, adequate lighting during the day PULMONARY: Supplemental 02 as needed. Maintain aspiration precautions at all times CARDIOVASCULAR: Follow hemodynamics. Vital signs per facility protocol GI & NUTRITION: Continue with nutritional support. Continue stool softeners and laxatives as needed. KIDNEYS & ELECTROLYTES: Strict monitoring of intake, output and overall fluid balance. Avoid nephrotoxic medications to the extent possible. Medications to be dosed according to renal function. Monitor electrolytes and replace as needed ENDOCRINE: Maintain blood glucose between 100-180 at all times. Hypoglycemia protocol in place INFECTIOUS DISEASE: Trend temperature, WBC and procalcitonin level Follow cultures, deescalate antibiotics as soon as possible. Panculture if new onset fever ONCOLOGY/HEMATOLOGY/COAGULATION: Monitor for s/s of bleeding Monitor hemoglobin, coagulation studies as needed SKIN: Pressure ulcer prevention per facility protocol Specialty mattress ORTHO/REHAB: Continue PT/OT Prophylaxis: Continue GI and DVT prophylaxis Code Status: Full Resuscitation Disposition: MIGUEL ANGEL CALDERON NP Mar 20, 2025 12:20
[2025-03-20] MEDS ORDERED: PoTASSium chl 10% ELIXIR 20MEQ 20 MEQ/15 ML UDCUP PO PRN (13:30)
[2025-03-20] MEDS: PoTASSium chloRIDE 20MEQ ER 20 MEQ ERTAB PO PRN (13:34)
--- NOTE | 2025-03-20 15:30 | NUR ---
CRITICAL LABS. Addendum: 03/20/25 at 1554 by PORSCHE RALPH PT Amended: Links added.
[2025-03-20] MEDS: LUBIPROSTONE 24 MCG CAP PO SCH (19:52)
[2025-03-20] MEDS: BACLOFEN 10 MG TABLET PO SCH (19:52)
[2025-03-20] MEDS: (Levocetirizine Dihydrochloride 5 MG) PO SCH (19:54)
[2025-03-20] MEDS: Duloxetine HCl 20 MG PO SCH (19:55)
--- NOTE | 2025-03-20 21:45 | NUR ---
HOME MEDS PATIENT took her own duloxetine and levocetirizine for the night. i removed the bottles from her room, took them to pharmacy for a label, and now are in the medication room.
[2025-03-21] VITALS (9 sets, daily range): BP systolic 122–159; BP diastolic 61–73; PULSE 57–71; RESP 18–20; TEMP 96.1–98.1; O2SAT 97–98
--- NOTE | 2025-03-21 01:44 | NUR ---
nurse note patient alert and oriented times 3. grandson at bedside. plan of care discussed with them and they verbalized understanding. akosua left home at 19:40. patient turns on her sides by herself. patient has no pain tonight. morris catheter has clear yellow urine. patient has slept about 5 hours tonight. call light within reach, bed alarm on, 2 side rails up. will continue to monitor patient.
[2025-03-21] MEDS: HYDROcodone/APAP 5/325 1 TAB TABLET PO PRN (02:18)
[2025-03-21 05:24] LABS: IMMATURE GRANULOCYTE ABSOLUTE 0.02 K/uL (0-1); NUCLEATED RED BLOOD CELLS 0.0 % (0.0-0.19); PLATELET COUNT (AUTO) 391 K/uL (130-400); RED BLOOD CELL COUNT(AUTO) 3.94 MIL/uL (4.00-5.50); RED CELL DISTRIBUTION WIDTH 14.3 % (11.0-15.5); WHITE BLOOD COUNT (AUTO) 5.8 K/uL (4.8-10.8)
[2025-03-21 05:56] LABS: ASPARTATE AMINOTRANSFERASE 18.0 U/L (10-37); CREATININE 0.6 mg/dL (0.5-1.0); GLOMERULAR FILTR. RATE CALC 95.0 mL/min (>90); GLUCOSE,RANDOM 95.0 mg/dL (70-105); SODIUM SERUM 138.0 mmol/L (136-145); TOTAL PROTEIN, SERUM 6.6 g/dL (6.0-8.3); UREA NITROGEN, BLOOD 6.0 mg/dL (7-18)
[2025-03-21] MEDS ORDERED: NON-FORMULARY MEDICATION 1 EACH (Esomeprazole Magnesium 40 MG) PO SCH (09:00)
--- NOTE | 2025-03-21 14:52 | PN ---
[facility] PROGRESS NOTE Date Patient Seen: Mar 21, 2025 Time of Visit: 14:51 Supervising Physician: Dr. Oseguera Primary Care Physician: Dr Dunn Outpatient Specialists: [ ] Inpatient Consults: [ ] PROBLEM LIST: Acute complicated cystitis secondary long-term Kemp catheter usage, neurogenic bladder, POA Electrolyte disturbance syndrome: Hypokalemia, Hyponatremia, & Hypomagnesemia , POA Moderate protein calorie malnutrition, POA CHRONIC PROBLEM LIST: Hypertension Constipation chronic COPD Chronic normocytic anemia PLAN: Admit To medical-surgical floor with telemetry VS per unit protocol Urine culture results: (+) Yeast, not Jeimy tropicalis, gram negative rods ABS: Fluconazole, zosyn Physical therapy to evaluate treat with discharge recommendations: Patient has had multiple falls prior to admission IV fluid has been discontinued, patient is tolerating p.o. well Aspiration precautions Keep head of bed above 30 Incentive spirometry Bilateral SCDs CBC, CMP, magnesium level daily INTERVAL HISTORY:Patient is seen at bedside today, nursing staff present, no family in the room at the time. Patient is resting comfortably, AAO x3, she denies any acute distress at this time. Patient has pending physical therapy evaluation to determine recommendations for final disposition. She continues on Diflucan at this time for Jeimy tropicalis on urine culture, pending final culture results for Gram-negative rods. We will add Zosyn to her antibiotic regimen for further coverage and will deescalate when susceptibilities as reported. REVIEW OF SYSTEMS: 12 point ROS reviewed with patient. Pertinent positives mentioned above. Otherwise negative. PHYSICAL EXAM: GENERAL: alert, weak, awake oriented x 3 HEENT: EOMI, Sclera non icteric, moist mucosa NECK: Supple, no JVD, trachea midline LUNGS: Clear breath sounds bilaterally. No wheezes HEART: Regular rate and rhythm. Normal S1 and S2, without murmurs ABD: Tenderness on left upper and lower abdomen on palpation EXT: No clubbing cyanosis or edema NEURO: Alert and oriented to person, follows commands Vital Signs (last 8hr) Date Time Temp Pulse Resp B/P (MAP) Pulse Ox O2 Delivery O2 Flow Rate FiO2 03/21/25 12:00 97.5 57 19 150/71 98 Room Air 21 03/21/25 08:00 97.9 61 19 122/62 98 Room Air 21 LABS: Hematology Labs: Test 03/21/25 04:54 Range/Units White Blood Count 5.8 4.8-10.8 K/uL Red Blood Count 3.94 L 4.00-5.50 MIL/uL Hemoglobin 11.4 L 12.0-16.0 g/dL Hematocrit 34.0 L 36-48 % Mean Corpuscular Volume 86.3 79-99 fL Mean Corpuscular Hemoglobin 28.9 27.0-33.0 pg Mean Corpuscular Hemoglobin Concent 33.5 32.0-36.0 g/dL Red Cell Distribution Width 14.3 11.0-15.5 % Platelet Count 391 130-400 K/uL Mean Platelet Volume 8.8 7.5-10.5 fL Immature Granulocyte % (Auto) 0.3 0-1 % Neutrophils (%) (Auto) 54.7 40.0-77.0 % Lymphocytes (%) (Auto) 30.9 21.0-51.0 % Monocytes (%) (Auto) 11.3 3.0-13.0 % Eosinophils (%) (Auto) 2.1 0.0-8.0 % Basophils (%) (Auto) 0.7 0.0-5.0 % Neutrophils # (Auto) 3.2 1.8-7.7 K/uL Lymphocytes # (Auto) 1.8 1.0-4.8 K/uL Monocytes # (Auto) 0.7 0.1-1.0 K/uL Eosinophils # (Auto) 0.12 0.00-0.70 K/uL Basophils # (Auto) 0.04 0.00-0.20 K/uL Absolute Immature Granulocyte (auto 0.02 0-1 K/uL Nucleated Red Blood Cells 0.0 0.0-0.19 % Chemistry Labs: Test 03/21/25 10:43 03/21/25 04:54 03/20/25 06:15 Range/Units Whole Blood Glucose 112 H 70-110 MG/DL Bedside Glucose Comment Notified Nurse Sodium Level 138 136-145 mmol/L Potassium Level 4.0 3.5-5.1 mmol/L Chloride Level 103 101-111 mmol/L Carbon Dioxide Level 28 21-32 mmol/L Blood Urea Nitrogen 6 L 7-18 mg/dL Creatinine 0.6 0.5-1.0 mg/dL Glomerular Filtration Rate Calc 95 >90 mL/min Random Glucose 95 70-105 mg/dL Total Calcium 8.7 8.5-10.1 mg/dL Magnesium Level 1.90 1.80-2.40 mg/dL Total Bilirubin 0.6 0.2-1.0 mg/dL Aspartate Amino Transf (AST/SGOT) 18 10-37 U/L Alanine Aminotransferase (ALT/SGPT) 15 12-78 U/L Alkaline Phosphatase 57 50-136 U/L Total Protein 6.6 6.0-8.3 g/dL Albumin 3.0 L 3.5-5.0 g/dL Phosphorus Level 2.5 2.5-4.9 mg/dL Thyroid Stimulating Hormone (TSH) 3.08 # 0.36-3.74 uIU/mL DIAGNOSTICS / RADIOLOGY RESULTS: [ ] PLAN NEURO: Minimize central acting medications as possible. Maintain fall precautions, adequate lighting during the day PULMONARY: Supplemental 02 as needed. Maintain aspiration precautions at all times CARDIOVASCULAR: Follow hemodynamics. Vital signs per facility protocol GI & NUTRITION: Continue with nutritional support. Continue stool softeners and laxatives as needed. KIDNEYS & ELECTROLYTES: Strict monitoring of intake, output and overall fluid balance. Avoid nephrotoxic medications to the extent possible. Medications to be dosed according to renal function. Monitor electrolytes and replace as needed ENDOCRINE: Maintain blood glucose between 100-180 at all times. Hypoglycemia protocol in place INFECTIOUS DISEASE: Trend temperature, WBC and procalcitonin level Follow cultures, deescalate antibiotics as soon as possible. Panculture if new onset fever ONCOLOGY/HEMATOLOGY/COAGULATION: Monitor for s/s of bleeding Monitor hemoglobin, coagulation studies as needed SKIN: Pressure ulcer prevention per facility protocol Specialty mattress ORTHO/REHAB: Continue PT/OT Prophylaxis: Continue GI and DVT prophylaxis Code Status: Full Resuscitation Disposition: ANURAG WHITE Mar 21, 2025 14:52
--- NOTE | 2025-03-21 16:40 | NUR ---
PT chuy completed this date. Grandson asking for IRU but reports that he has been told the patient may not qualify. They are willing to consider [place]. Pt completed bed mobility and transfer at min assist. Pt walks 25 ft when session was interrupted by urgent need for bowel movement. Pt had been given laxative. Pt needed extensive time on commode and was left with grandson present in room and instruction to call for assist when patient was ready. Nurse aware. CUTLERY GRINDER called later that grandson was upset that he wants patient to walk further. CUTLERY GRINDER walked patient 250 feet at CGA and standing rest breaks. Pt may not be candidate for therapy at this time.
[2025-03-21] MEDS: ZOSYN 3.375GM +NS 50ML IVPB SCH (23:02)
[2025-03-22] VITALS (7 sets, daily range): BP systolic 88–168; BP diastolic 60–73; PULSE 63–86; RESP 17–19; TEMP 97.6–98.1; O2SAT 96–97
[2025-03-22 06:04] LABS: NUCLEATED RED BLOOD CELLS 0.0 % (0.0-0.19); PLATELET COUNT (AUTO) 379.0 K/uL (130-400); RED BLOOD CELL COUNT(AUTO) 3.83 MIL/uL (4.00-5.50); RED CELL DISTRIBUTION WIDTH 14.3 % (11.0-15.5); WHITE BLOOD COUNT (AUTO) 6.0 K/uL (4.8-10.8)
[2025-03-22 06:15] LABS: CREATININE 0.5 mg/dL (0.5-1.0); GLOMERULAR FILTR. RATE CALC 99.0 mL/min (>90); GLUCOSE,RANDOM 90.0 mg/dL (70-105); SODIUM SERUM 135.0 mmol/L (136-145); UREA NITROGEN, BLOOD 6.0 mg/dL (7-18)
[2025-03-22] MEDS ORDERED: 0.9%NACL 50ML IV SCH (09:00)
--- NOTE | 2025-03-22 13:19 | PN ---
[facility] PROGRESS NOTE Date Patient Seen: Mar 22, 2025 Time of Visit: 13:18 Supervising Physician: Dr. Bowling Primary Care Physician: Dr Dunn Outpatient Specialists: [ ] Inpatient Consults: [ ] PROBLEM LIST: Acute complicated cystitis secondary long-term Kemp catheter usage, neurogenic bladder, POA Electrolyte disturbance syndrome: Hypokalemia, Hyponatremia, & Hypomagnesemia , POA Moderate protein calorie malnutrition, POA CHRONIC PROBLEM LIST: Hypertension Constipation chronic COPD Chronic normocytic anemia PLAN: Admit To medical-surgical floor with telemetry VS per unit protocol Urine culture results: (+) Yeast, not Jeimy tropicalis, gram negative rods ABS: Fluconazole, zosyn Physical therapy to evaluate treat with discharge recommendations: Patient has had multiple falls prior to admission IV fluid has been discontinued, patient is tolerating p.o. well Aspiration precautions Keep head of bed above 30 Incentive spirometry Bilateral SCDs CBC, CMP, magnesium level daily INTERVAL HISTORY:Patient is seen at bedside today, nursing staff present, no family in the room at the time. Patient is resting comfortably, AAO x3, she denies any acute distress at this time. Patient has pending physical therapy evaluation to determine recommendations for final disposition. She continues on Diflucan at this time for Jeimy tropicalis on urine culture, pending final culture results for Gram-negative rods. We will add Zosyn to her antibiotic regimen for further coverage and will deescalate when susceptibilities as reported. REVIEW OF SYSTEMS: 12 point ROS reviewed with patient. Pertinent positives mentioned above. Otherwise negative. PHYSICAL EXAM: GENERAL: alert, weak, awake oriented x 3 HEENT: EOMI, Sclera non icteric, moist mucosa NECK: Supple, no JVD, trachea midline LUNGS: Clear breath sounds bilaterally. No wheezes HEART: Regular rate and rhythm. Normal S1 and S2, without murmurs ABD: Tenderness on left upper and lower abdomen on palpation EXT: No clubbing cyanosis or edema NEURO: Alert and oriented to person, follows commands Vital Signs (last 8hr) Date Time Temp Pulse Resp B/P (MAP) Pulse Ox O2 Delivery O2 Flow Rate FiO2 03/22/25 11:16 98.1 86 18 88/66 98 Room Air 03/22/25 08:10 97.9 64 19 152/73 98 Room Air 03/22/25 07:12 78 18 N/A Room Air 21 LABS: Hematology Labs: Test 03/22/25 05:45 03/21/25 04:54 Range/Units White Blood Count 6.0 4.8-10.8 K/uL Red Blood Count 3.83 L 4.00-5.50 MIL/uL Hemoglobin 11.2 L 12.0-16.0 g/dL Hematocrit 33.5 L 36-48 % Mean Corpuscular Volume 87.5 79-99 fL Mean Corpuscular Hemoglobin 29.2 27.0-33.0 pg Mean Corpuscular Hemoglobin Concent 33.4 32.0-36.0 g/dL Red Cell Distribution Width 14.3 11.0-15.5 % Platelet Count 379 130-400 K/uL Mean Platelet Volume 8.7 7.5-10.5 fL Nucleated Red Blood Cells 0.0 0.0-0.19 % Immature Granulocyte % (Auto) 0.3 0-1 % Neutrophils (%) (Auto) 54.7 40.0-77.0 % Lymphocytes (%) (Auto) 30.9 21.0-51.0 % Monocytes (%) (Auto) 11.3 3.0-13.0 % Eosinophils (%) (Auto) 2.1 0.0-8.0 % Basophils (%) (Auto) 0.7 0.0-5.0 % Neutrophils # (Auto) 3.2 1.8-7.7 K/uL Lymphocytes # (Auto) 1.8 1.0-4.8 K/uL Monocytes # (Auto) 0.7 0.1-1.0 K/uL Eosinophils # (Auto) 0.12 0.00-0.70 K/uL Basophils # (Auto) 0.04 0.00-0.20 K/uL Absolute Immature Granulocyte (auto 0.02 0-1 K/uL Chemistry Labs: Test 03/22/25 10:38 03/22/25 05:45 03/21/25 15:53 03/21/25 04:54 Range/Units Whole Blood Glucose 98 70-110 MG/DL Sodium Level 135 L 136-145 mmol/L Potassium Level 3.8 3.5-5.1 mmol/L Chloride Level 99 L 101-111 mmol/L Carbon Dioxide Level 29 21-32 mmol/L Blood Urea Nitrogen 6 L 7-18 mg/dL Creatinine 0.5 0.5-1.0 mg/dL Glomerular Filtration Rate Calc 99 >90 mL/min Random Glucose 90 70-105 mg/dL Total Calcium 8.7 8.5-10.1 mg/dL Bedside Glucose Comment Notified Nurse Magnesium Level 1.90 1.80-2.40 mg/dL Total Bilirubin 0.6 0.2-1.0 mg/dL Aspartate Amino Transf (AST/SGOT) 18 10-37 U/L Alanine Aminotransferase (ALT/SGPT) 15 12-78 U/L Alkaline Phosphatase 57 50-136 U/L Total Protein 6.6 6.0-8.3 g/dL Albumin 3.0 L 3.5-5.0 g/dL DIAGNOSTICS / RADIOLOGY RESULTS: [ ] PLAN NEURO: Minimize central acting medications as possible. Maintain fall precautions, adequate lighting during the day PULMONARY: Supplemental 02 as needed. Maintain aspiration precautions at all times CARDIOVASCULAR: Follow hemodynamics. Vital signs per facility protocol GI & NUTRITION: Continue with nutritional support. Continue stool softeners and laxatives as needed. KIDNEYS & ELECTROLYTES: Strict monitoring of intake, output and overall fluid balance. Avoid nephrotoxic medications to the extent possible. Medications to be dosed according to renal function. Monitor electrolytes and replace as needed ENDOCRINE: Maintain blood glucose between 100-180 at all times. Hypoglycemia protocol in place INFECTIOUS DISEASE: Trend temperature, WBC and procalcitonin level Follow cultures, deescalate antibiotics as soon as possible. Panculture if new onset fever ONCOLOGY/HEMATOLOGY/COAGULATION: Monitor for s/s of bleeding Monitor hemoglobin, coagulation studies as needed SKIN: Pressure ulcer prevention per facility protocol Specialty mattress ORTHO/REHAB: Continue PT/OT Prophylaxis: Continue GI and DVT prophylaxis Code Status: Full Resuscitation Disposition: ANURAG WHITE Mar 22, 2025 13:18
--- NOTE | 2025-03-22 17:15 | NUR ---
REPORT CALLED TO [facility] NURSE KONRAD Torres LVN
--- NOTE | 2025-03-22 18:05 | NUR ---
PATIENT DISCHARGED TO [facility] VIA FACILITY VAN WITH BELONGINGS AND COPY OF DISCHARGE SUMMARY , GRANDSON AT BEDSIDE AWARE OF TRANSFER
--- NOTE | 2025-03-22 21:16 | DS ---
[facility] DISCHARGE SUMMARY Date Patient Seen: Mar 22, 2025 Time of Visit: 21:14 Supervising Physician: Dr. Bowling Primary Care Physician: Dr Dunn Outpatient Specialists: [ ] Inpatient Consults: [ ] HOSPITAL COURSE: HPI (per admitting provider) 75-year-old female with past medical history of hypertension, COPD, chronic anemia, neurogenic bladder s/p Kemp catheter insertion, recent UTI, who presented to ED via private vehicle with complaint of generalized body weakness with an associated abdominal pain and found to have hypokalemia, hyponatremia, hypomagnesemia, and urinary tract infection. Apparently patient was recently discharged from this hospital two weeks ago with similar complaint. She came again today with complaint of poor appetite, and feeling unwell. Workup done in ED CBC showed chronic anemia, however her CMP showed multiple electrolyte imbalances. Her UA also consistent with persistent urinary tract in fection. CT of the abdomen unremarkable for any acute intra-abdominal process, as well as unremarkable chest x-ray. Patient was seen and examined in ED with family member present at bedside. At present patient is currently hemodynamically stable, on room air with appropriate oxygen saturation, normal sinus rhythm on the monitor, GCS 15, and some tenderness on left upper and lower abdomen on palpation. Patient denies any headache, chest pain, shortness of breath, complains of generalized body weakness and poor appetite. In ED patient was initiated on IV fluids and started on IV Zosyn. The patient was treated for the following problems: Patient was evaluated and admitted for acute complicated cystitis, cultures returned positive for E coli and Jeimy tropicalis, patient with significant deconditioning on this admission, she has been accepted and authorized for SNF placement for rehab and IV antibiotics, patient is discharged on Zosyn and Diflucan. 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 PCP notified of patients admission, hospital course and discharge. PHYSICAL EXAM: GENERAL: alert, weak, awake oriented x 3 HEENT: EOMI, Sclera non icteric, moist mucosa NECK: Supple, no JVD, trachea midline LUNGS: Clear breath sounds bilaterally. No wheezes HEART: Regular rate and rhythm. Normal S1 and S2, without murmurs ABD: Tenderness on left upper and lower abdomen on palpation EXT: No clubbing cyanosis or edema NEURO: Alert and oriented to person, follows commands FOLLOW-UP: Follow-up with PCP in 2-3 days RECOMMENDATIONS: See Discharge Instructions This case was seen and discussed with my supervising physician. More than 30 minutes spent on discharge process, including evaluation of the patient, discussion with nursing staff, medication reconciliation and follow-up appointments ANURAG BEST Mar 22, 2025 21:16
== END 2025-03-22 18:05 | DRG 699 ==
LOC: EDH 19:35 → EDHIP 03-19 00:12 → 3DH 03-19 22:07
PROVIDERS: ADMIT Internal Medicine Pulmonary Disease; ATTEND Internal Medicine Pulmonary Disease
DX: T83.518A Infection and inflammatory reaction due to other urinary catheter, initial encounter (principal); E44.0 Moderate protein-calorie malnutrition; E87.1 Hypo-osmolality and hyponatremia; E87.6 Hypokalemia; E83.42 Hypomagnesemia; N31.9 Neuromuscular dysfunction of bladder, unspecified; I10 Essential (primary) hypertension; J44.9 Chronic obstructive pulmonary disease, unspecified; D64.9 Anemia, unspecified; E78.00 Pure hypercholesterolemia, unspecified; R62.7 Adult failure to thrive; Y82.8 Other medical devices associated with adverse incidents; B96.20 Unspecified Escherichia coli [E. coli] as the cause of diseases classified elsewhere; K59.09 Other constipation; Z68.27 Body mass index [BMI] 27.0-27.9, adult; Z90.710 Acquired absence of both cervix and uterus; Y92.89 Other specified places as the place of occurrence of the external cause
CPT/HCPCS: 36415; 71045; 74176; 80048; 80053; 81001; 81003; 82948; 83605; 83690; 83735; 84100; 84443; 84484; 85025; 85027; 87070; 87076; 87086; 87186; 87635; 87804; 93005; 94664; 99285; G0378; J1450; J2543; J3475; J3480; J7030; J7050

== ENCOUNTER 2025-05-15 17:00 | Observation (INO) | payer OTHER, MEDICAID ==
[~2025-05-15] VITALS: Ht 154.9 cm; Wt 66.9 kg
[~2025-05-15 17:00] MED LIST changes: -ASPI-1005 PO
--- NOTE | 2025-05-15 19:50 | HP ---
[facility] HISTORY & PHYSICAL Date Patient Seen: May 15, 2025 Time of Visit: 19:50 Supervising Physician: Dr. Alves Primary Care Physician: Dr. Shakir Dunn Outpatient Specialists: Inpatient Consults: PROBLEM LIST: Elevated D-dimer as outpatient, POA, rule out PE/DVT Hypokalemia, severe, POA Hyponatremia/hypochloremia, POA Uncontrolled hypertension, POA Anemia chronic disease, POA Thrombocytosis, POA Chronic problem list: HTN, COPD, chronic anemia, neurogenic bladder s/p chronic Kemp HPI: Ms. Andrews is a 75-year-old female with a history of HTN, COPD, chronic anemia, neurogenic bladder s/p chronic Kemp who [place] [facility] [place] evaluation and treatment of elevated D-dimer. The patient was sent by Dr. Shakir Dunn's clinic for further evaluation as a direct admit. Hemoglobin 11.5, hematocrit 33.8, RBC 3.90, platelet 404, sodium 133, potassium 2.9, chloride 92. UA negative for leuk EST, positive for occult blood. The patient was seen and assessed by me. The patient appeared weak, breathing was even, unlabored, in no distress. No family member at bedside. I informed her of labs, diagnosis, and plan of care. She verbalized understanding understanding and is in agreement with the plan. Plan and assessment are listed below. PAST MEDICAL HX: see above PAST SURGICAL HX: Noncontributory SOCIAL HISTORY: No tobacco, ETOH, or illicit drug use Coded Allergies: No Known Drug Allergies (Unverified Allergy, Unknown, 08/16/14) REVIEW OF SYSTEMS: 12 point ROS reviewed with patient. Pertinent positives mentioned above. Otherwise negative. PHYSICAL EXAM: GENERAL: Alert, weak, awake oriented x 3 HEENT: EOMI, Sclera non icteric, moist mucosa NECK: Supple, no JVD, trachea midline LUNGS: Clear breath sounds bilaterally. No wheezes HEART: Regular rate and rhythm. Normal S1 and S2, without murmurs ABD: Abdomen soft, nontender. Bowel sounds present EXT: No clubbing cyanosis or edema NEURO: Alert and oriented to person, follows commands Vital Signs (last 8hr) Date Time Temp Pulse Resp B/P (MAP) Pulse Ox O2 Delivery O2 Flow Rate FiO2 05/15/25 17:03 98.1 79 16 135/77 99 Room Air LABS: DIAGNOSTICS / RADIOLOGY RESULTS: [ ] PLAN Obtain CT PE protocol and venous Dopplers. Obtain influenza, COVID, and strep screen. Kemp care per nursing. P.r.n. medications for pain management, nausea, vomiting, hypertension, fever, constipation Glucometer checks a.c. and HS with insulin regular sliding scale per protocol. Blood pressure checks every4 hours and as needed. Reconcile home medications once available. Monitor renal and liver function. Monitor electrolytes and treat accordingly. A.m. labs. GI and DVT prophylaxis. Further orders/plan per hospitalization course. NEURO: Minimize central acting medications as possible. Maintain fall precautions, adequate lighting during the day PULMONARY: Supplemental 02 as needed. Maintain aspiration precautions at all times CARDIOVASCULAR: Follow hemodynamics. Vital signs per facility protocol GI & NUTRITION: Continue with nutritional support. Continue stool softeners and laxatives as needed. KIDNEYS & ELECTROLYTES: Strict monitoring of intake, output and overall fluid balance. Avoid nephrotoxic medications to the extent possible. Medications to be dosed according to renal function. Monitor electrolytes and replace as needed ENDOCRINE: Maintain blood glucose between 100-180 at all times. Hypoglycemia protocol in place INFECTIOUS DISEASE: Trend temperature, WBC and procalcitonin level Follow cultures, deescalate antibiotics as soon as possible. Panculture if new onset fever ONCOLOGY/HEMATOLOGY/COAGULATION: Monitor for s/s of bleeding Monitor hemoglobin, coagulation studies as needed SKIN: Pressure ulcer prevention per facility protocol Specialty mattress ORTHO/REHAB: Continue PT/OT Prophylaxis: Continue GI and DVT prophylaxis Code Status: Full Resuscitation Disposition: [facility] May 15, 2025 19:50
[2025-05-15] MEDS ORDERED: LACTULOSE 20 GM/30 ML UDCUP PO PRN (20:00)
--- NOTE | 2025-05-15 20:12 | NUR ---
ULTRASOUND AT BEDSIDE.
[2025-05-15 20:13] LABS: NUCLEATED RED BLOOD CELLS 0.0 % (0.0-0.19); PLATELET COUNT (AUTO) 404.0 K/uL (130-400); RED BLOOD CELL COUNT(AUTO) 3.9 MIL/uL (4.00-5.50); RED CELL DISTRIBUTION WIDTH 14.2 % (11.0-15.5); WHITE BLOOD COUNT (AUTO) 6.4 K/uL (4.8-10.8)
[2025-05-15 20:23] LABS: INR 1.01 (0.85-1.15)
[2025-05-15 20:32] LABS: ASPARTATE AMINOTRANSFERASE 34.0 U/L (10-37); CREATININE 0.6 mg/dL (0.5-1.0); GLOMERULAR FILTR. RATE CALC 95.0 mL/min (>90); GLUCOSE,RANDOM 98.0 mg/dL (70-105); SODIUM SERUM 133.0 mmol/L (136-145); TOTAL PROTEIN, SERUM 7.6 g/dL (6.0-8.3); UREA NITROGEN, BLOOD 11.0 mg/dL (7-18)
[2025-05-15] MEDS ORDERED: IOHEXOL-350 75 ML VIAL IV ONE (21:11)
[2025-05-15 21:14] LABS: APPEARANCE,URINE CLEAR (CLEAR); GLUCOSE, URINE (UA) NEGATIVE (NEGATIVE); LEUKOCYTE ESTERASE ,URINE NEGATIVE Leu/uL (NEGATIVE); NITRATE,URINE NEGATIVE (NEGATIVE); OCCULT BLOOD,URINE +- (TRACE) (NEGATIVE)
[2025-05-15 21:16] LABS: ADD UA MICROSCOPIC YES
[2025-05-15] MEDS: FAMOTIDINE 20MG VIAL IV SCH (21:21)
[2025-05-15] MEDS ORDERED: PoTASSium chl 10% ELIXIR 20MEQ 20 MEQ/15 ML UDCUP PO PRN (21:30)
[2025-05-15] MEDS ORDERED: GLUCAGON 1MG KIT 1 MG ML IM PRN (21:30)
[2025-05-15] MEDS ORDERED: DEXTROSE 50%-WATER 50 ML DISP.SYRIN IV PRN (21:30)
[2025-05-15] MEDS ORDERED: MAGNESIUM 2GM PREMIX 50ML 50 ML IV PRN (21:30)
[2025-05-15 21:40] VITALS: BP 154/87; PULSE 88; RESP 19; TEMP 98.1; O2SAT 96
--- NOTE | 2025-05-15 21:40 | NUR ---
patient asked if home medication were brought. none were brought at this time, asked for someone to bring as soon as possible.
--- NOTE | 2025-05-15 21:41 | NUR ---
noted that patient had folycath in place on admission, when asked reason for cath, patient stated that it was for and infection.
--- NOTE | 2025-05-15 21:41 | NUR ---
unknown date of insertion of folycath. patient does not recall at this time
--- NOTE | 2025-05-15 22:11 | HMCIMG ---
EXAM: CT Chest With Intravenous Contrast. CLINICAL HISTORY: 75-year-old female with elevated d-dimer. TECHNIQUE: Axial computed tomography images of the chest with intravenous contrast. Dose reduction technique was used including one or more of the following: automated exposure control, adjustment of mA and kV according to patient size, and/or iterative reconstruction. CONTRAST: With; Standard contrast dose given. COMPARISON: Findings are better appreciated compared to the chest x-ray. XR Chest 20:48 04/18/25 FINDINGS: LUNGS: Negative for pulmonary embolism. No pulmonary mass. No focal airspace consolidation. PLEURAL SPACES: No pleural effusion. No pneumothorax. HEART AND MEDIASTINUM: No cardiomegaly. No significant pericardial effusion. Coronary arteries motion artifact limits evaluation. LYMPH NODES: No lymphadenopathy. CHEST WALL AND UPPER ABDOMEN: Cholecystectomy clips are present. The upper abdominal solid organs are unremarkable. The chest wall is unremarkable. BONES: Moderate degenerative changes are noted in the thoracic spine. VASCULATURE: Atherosclerotic aorta. IMPRESSION: 1. No evidence of pulmonary embolism or other acute intra-thoracic abnormality. /[place]
[2025-05-15 23:19] VITALS: BP 136/67; PULSE 86; RESP 18; TEMP 97.5
[2025-05-16] MEDS: PoTASSium chloRIDE 20MEQ ER 20 MEQ ERTAB PO PRN (00:46)
[2025-05-16 03:42] VITALS: BP 136/82; PULSE 69; RESP 18; TEMP 97.9
[2025-05-16 04:46] LABS: NUCLEATED RED BLOOD CELLS 0.0 % (0.0-0.19); PLATELET COUNT (AUTO) 334.0 K/uL (130-400); RED BLOOD CELL COUNT(AUTO) 3.89 MIL/uL (4.00-5.50); RED CELL DISTRIBUTION WIDTH 14.1 % (11.0-15.5); WHITE BLOOD COUNT (AUTO) 5.5 K/uL (4.8-10.8)
[2025-05-16 05:20] LABS: CREATININE 0.6 mg/dL (0.5-1.0); GLOMERULAR FILTR. RATE CALC 95.0 mL/min (>90); GLUCOSE,RANDOM 92.0 mg/dL (70-105); PHOSPHORUS 3.2 mg/dL (2.5-4.9); SODIUM SERUM 140.0 mmol/L (136-145); UREA NITROGEN, BLOOD 10.0 mg/dL (7-18)
[2025-05-16 08:00] VITALS: BP 135/77; PULSE 70; RESP 18; TEMP 97.8
--- NOTE | 2025-05-16 08:22 | HMCIMG ---
EXAMINATION: SPECTRAL DOPPLER ULTRASOUND EXAMINATION OF THE BILATERAL LOWER EXTREMITY VEINS. CLINICAL HISTORY: Elevated D-dimer. COMPARISON: None provided. TECHNIQUE: Real-time ultrasound scan of the veins of the bilateral lower extremity with color Doppler flow, spectral waveform analysis and compression. FINDINGS: DEEP VEINS: The common femoral, superficial femoral, and popliteal veins are echolucent and compressible. There is normal color Doppler flow throughout. The visualized calf veins appear patent. SUPERFICIAL VEINS: The greater saphenous veins are patent and compressible. SOFT TISSUES: No popliteal fossa cyst or other abnormalities. IMPRESSION: No deep venous thrombosis evident in the bilateral lower extremity. No superficial thrombophlebitis in the bilateral lower extremity. /Miguel
--- NOTE | 2025-05-16 09:56 | NUR ---
DCP:HOME Pt currently lives alone in her home. Pt's apartment is covered though housing and recieves $26 a month in [employer]. Pt has a walker and cane that she uses at home to ambulate. Pt states that her daughter is her provider however is unaware how many hours she "works" but she assists her all day with ADLs, home management, and meals. PCP is Dr. Dunn and uses [facility] for any RX needs. At [place] pt will want to go home and family can assist with transportation. Addendum: 05/16/25 at 1000 by WINIFERD [place] SS Amended: Links added.
--- NOTE | 2025-05-16 10:30 | NUR ---
PATIENT UPDATE PATIENT'S DAUGHTER REPORTS PATIENT WITH HISTORY OF CHRONIC UTI'S. GOFF WAS PLACED 2 MONTHS AGO BY UROLOGIST DR. RODGERS 2 MONTHS AT [facility]. PATIENT IS HAS APPOINTMENT WITH DR. RODGERS FOR GOFF EXCHANGE ON 05/17. GOFF IS CHANGED EVERY 30 DAYS.
[2025-05-16 11:29] LABS: RAPID GROUP A STREP negative (NEGATIVE)
[2025-05-16 11:33] LABS: SARS-CoV-2, RNA, NAAT NEGATIVE SARS CoV-2 (NEGATIVE)
[2025-05-16 11:39] LABS: INFLUENZA TYPE A Negative For Type A (NEGATIVE); INFLUENZA TYPE B Negative For Type B (NEGATIVE)
[2025-05-16 12:00] VITALS: BP 137/62; PULSE 64; RESP 18; TEMP 97.4
[2025-05-16] MEDS ORDERED: ASPI-1005 PO (13:20)
[2025-05-16 16:00] VITALS: BP 111/51; PULSE 78; RESP 18; TEMP 97.5
[2025-05-16 16:55] VITALS: O2SAT 95
[2025-05-16 17:33] VITALS: PULSE 80; PULSE 81; RESP 18; O2SAT 96; O2SAT 98
--- NOTE | 2025-05-16 18:40 | NUR ---
PATIENT DISCHARGE PATIENT DISCHARGED. PERIPHERAL IV REMOVED CATHETER INTACT. DISCHARGE INSTRUCTIONS GIVEN. PATIENT AWARE TO F/U WITH PCP IN 3-5 DAYS. PATIENT HAS F/U APPT WITH UROLOGIST 05/17. PATIENT INSTRUCTED TO F/U WITH [employer]. PER PATIENT HAS APPOINTMENT THIS MONTH. NO NEW PRESCRIPTIONS. PATIENT TO CONTINUE HOME MEDICATIONS. ALL QUESTIONS ANSWERED. PATIENT TAKEN DOWN BY WHEELCHAIR. ALL BELONGINGS SENT WITH PATIENT.
--- NOTE | 2025-05-16 19:46 | DS ---
[facility] DISCHARGE SUMMARY Date Patient Seen: May 16, 2025 Time of Visit: 1423 Supervising Physician: Dr. Adair Primary Care Physician: Dr. Shakir Dunn Outpatient Specialists: Inpatient Consults: PROBLEM LIST: Elevated D-dimer as outpatient, POA, PE ruled out per CTA, DVT ruled out per venous Doppler Hypokalemia, severe, POA , resolved Hyponatremia/hypochloremia, POA, resolved Uncontrolled hypertension, POA Anemia chronic disease, POA Thrombocytosis, POA Chronic problem list: HTN, COPD, chronic anemia, neurogenic bladder s/p chronic Kemp HOSPITAL COURSE: HPI (per admitting provider) Ms. Andrews is a 75-year-old female with a history of HTN, COPD, chronic anemia, neurogenic bladder s/p chronic Kemp who presented to [facility] ED for evaluation and treatment of elevated D-dimer. The patient was sent by Dr. Shakir Dunn's clinic for further evaluation as a direct admit. Hemoglobin 11.5, hematocrit 33.8, RBC 3.90, platelet 404, sodium 133, potassium 2.9, chloride 92. UA negative for leuk EST, positive for occult blood. The patient was seen and assessed by me. The patient appeared weak, breathing was even, unlabored, in no distress. No family member at bedside. I informed her of labs, diagnosis, and plan of care. She verbalized understanding understanding and is in agreement with the plan. Plan and assessment are listed below. Patient was seen and examined by bedside with family present. At time of visit patient has no specific complaints. Patient denies any chest pain or shortness of breadth. Denies any nausea vomiting or abdominal pain. Patient's CT chest was negative for PE patient's venous Dopplers were negative for DVT. Patient's potassium has been replaced per protocol. As per primary nurse patient passed 6 minute walk with no issues. Instructed patient and family member that patient will be getting discharged today and will need to follow up with PCP within 3-5 days upon discharge. Also spoke one-to-one with patient's primary care doctor and updated her with most recent labs and CT chest findings along with venous Doppler findings. Her primary care doctor agrees with plan with discharge The patient was treated for the following problems: ACTIVE PROBLEM LIST FOR THE HOSPITALIZATION: CHRONIC PROBLEMS: continue previous management per PCP unless otherwise indicated HIDE SPREADER FINDINGS/RECOMMENDATIONS: na PROCEDURES: as mentioned above DISCHARGE MEDICATIONS: Pt hemodynamically stable and afebrile at time of discharge. PCP notified of patients admission, hospital course and discharge. Continued Medications: Aspirin (Aspirin 81MG Chew Tab) 81 Mg Tab.chew 1 TAB PO DAILY for 30 Days, #30 TAB 0 Refills Baclofen (Baclofen) 10 Mg Tablet 5 MG PO HS, TAB Clopidogrel Bisulfate (Plavix) 75 Mg Tablet 75 MG PO DAILY, TAB Duloxetine HCl (Duloxetine HCl) 20 Mg Capsule.dr 20 MG PO BID, CAP Esomeprazole Magnesium (Esomeprazole Magnesium) 40 Mg Capsule.dr 40 MG PO DAILY, CAP Hydroxyzine HCl (Hydroxyzine HCl) 25 Mg Tablet 1 TAB PO BID PRN for ANXIETY/AGITATION for 30 Days, #60 TAB 0 Refills Losartan Potassium (Losartan Potassium) 50 Mg Tablet 50 MG PO DAILY, TAB Lubiprostone (Amitiza) 24 Mcg Capsule 24 MCG PO BID, CAP Rosuvastatin Calcium (Rosuvastatin Calcium) 5 Mg Tablet 5 MG PO DAILY, TAB PHYSICAL EXAM: GENERAL: Alert, weak, awake oriented x 3 HEENT: EOMI, Sclera non icteric, moist mucosa NECK: Supple, no JVD, trachea midline LUNGS: Clear breath sounds bilaterally. No wheezes HEART: Regular rate and rhythm. Normal S1 and S2, without murmurs ABD: Abdomen soft, nontender. Bowel sounds present EXT: No clubbing cyanosis or edema NEURO: Alert and oriented to person, follows commands FOLLOW-UP: Follow-up with PCP in 2-3 days RECOMMENDATIONS: See Discharge Instructions This case was seen and discussed with my supervising physician. 35 minutes spent on discharge process, including evaluation of the patient, discussion with nursing staff, medication reconciliation and follow-up appointments SUZY BOLANOS May 16, 2025 19:46
== END 2025-05-16 18:39 | disposition home or self-care (01) ==
LOC: EDH 17:00 → INTOOBSV 17:01 → EDHIP 17:01 → 4DH 21:41
PROVIDERS: ADMIT Internal Medicine; ATTEND Internal Medicine
DX: E87.6 Hypokalemia (principal); E87.1 Hypo-osmolality and hyponatremia; I10 Essential (primary) hypertension; E87.8 Other disorders of electrolyte and fluid balance, not elsewhere classified; D75.839 Thrombocytosis, unspecified; D63.8 Anemia in other chronic diseases classified elsewhere; N31.9 Neuromuscular dysfunction of bladder, unspecified; R79.89 Other specified abnormal findings of blood chemistry; R60.0 Localized edema; Z86.2 Personal history of diseases of the blood and blood-forming organs and certain disorders involving the immune mechanism; Z79.899 Other long term (current) drug therapy; Z98.890 Other specified postprocedural states; Z20.822 Contact with and (suspected) exposure to COVID-19
CPT/HCPCS: 96372 ×2; 96375; 83735 ×2; 80053; 83880; 85027 ×2; 85378 ×2; 85610; 85730; 81001; 36415 ×3; 71270; 93970; 96376; 96365; 84443; 84100; 80048; 87880; 87804 ×2; 82948 ×4; 87635; 94760; G0378 ×26; G0379; J1308 ×2; J1644 ×2; Q9967; J3480

== ENCOUNTER → 2025-05-15 | Outpatient (CLI) | payer OTHER, MEDICAID ==
[~2025-05-15] MED LIST changes: -ASCO10004 PO; +ASPI-1005 PO; -AZAT75TA2 PO; +BACL10TA PO; -BENZ200C53 PO; -CELE-146 PO; -CHOL500062 PO; -CRAN500C4 PO; -CYCL5TAB3 PO; -FLUT1BLS3 IH; -FOLI0.8T3 PO; +HYDR-3421 PO; -IBUP-2076 PO; -LEVO-70 PO; -LINA72CA PO; -MAGN500C4 PO; -MELO-106 PO; -ZINC220T4 PO
== END | disposition home or self-care (01) ==
LOC: LAB 09:23
PROVIDERS: ATTEND Internal Medicine
DX: M79.89 Other specified soft tissue disorders (principal)
CPT/HCPCS: 36415; 85378

== ENCOUNTER 2025-06-02 13:20 | Observation (INO) | payer OTHER, MEDICAID ==
[~2025-06-02] VITALS: Ht 167.6 cm; Wt 62.1 kg
[~2025-06-02 13:20] MED LIST changes: +ASPI-1005 PO; -LEVO5TAB13 PO
[2025-06-02 14:31] LABS: IMMATURE GRANULOCYTE ABSOLUTE 0.02 K/uL (0-1); NUCLEATED RED BLOOD CELLS 0.0 % (0.0-0.19); PLATELET COUNT (AUTO) 390 K/uL (130-400); RED BLOOD CELL COUNT(AUTO) 3.88 MIL/uL (4.00-5.50); RED CELL DISTRIBUTION WIDTH 13.3 % (11.0-15.5); WHITE BLOOD COUNT (AUTO) 5.7 K/uL (4.8-10.8)
[2025-06-02] MEDS: 0.9%NACL 1000ML 1,000 ML IV SCH (14:50)
[2025-06-02 14:53] LABS: ASPARTATE AMINOTRANSFERASE 36.0 U/L (10-37); CREATINE KINASE, TOTAL 256.0 U/L (21-232); CREATININE 0.5 mg/dL (0.5-1.0); GLOMERULAR FILTR. RATE CALC 99.0 mL/min (>90); GLUCOSE,RANDOM 89.0 mg/dL (70-105); SODIUM SERUM 128.0 mmol/L (136-145); TOTAL PROTEIN, SERUM 7.1 g/dL (6.0-8.3); UREA NITROGEN, BLOOD 9.0 mg/dL (7-18)
[2025-06-02] MEDS: BENZONATATE 100 MG CAPSULE PO SCH (15:54)
[2025-06-02 16:08] LABS: APPEARANCE,URINE CLEAR (CLEAR); GLUCOSE, URINE (UA) NEGATIVE (NEGATIVE); LEUKOCYTE ESTERASE ,URINE NEGATIVE Leu/uL (NEGATIVE); NITRATE,URINE 2+ (NEGATIVE); OCCULT BLOOD,URINE +- (TRACE) (NEGATIVE)
[2025-06-02 16:10] LABS: ADD UA MICROSCOPIC YES
[2025-06-02] MEDS ORDERED: HYDR12.54 PO (16:39)
--- NOTE | 2025-06-02 16:41 | NUR ---
CALLED NURSE WILL CALL BACK HE DISCHARGING A PATIENT
[2025-06-02 17:27] VITALS: BP 134/73; PULSE 65; RESP 18; TEMP 98
--- NOTE | 2025-06-02 19:19 | HP ---
[facility] HISTORY & PHYSICAL Date Patient Seen: Jun 02, 2025 Time of Visit: 19:11 Supervising Physician: DR. RUY BOWLING Primary Care Physician: DR. MAURICE BERTRAND Outpatient Specialists: [ ] Inpatient Consults: [ ] PROBLEM LIST: 1. Acute complicated cystitis in the context of chronic Kemp catheter 2. Chronic urinary retention with chronic Kemp catheter 3. Hyponatremia 4. Hypokalemia 5. Essential hypertension 6. Elevated CK. Chief complaint: Generalized body weakness, decreased appetite. HPI: Patient is a 75-year-old female with past medical history significant for hyp ertension, chronic urinary retention on chronic Kemp catheter, referred to the emergency department by her PCP Dr. Dunn for evaluation of generalized body weakness associated with poor appetite for about one week. Patient reports that for the past seven days, she is becoming increasingly weak, was evaluated today by her PCP today who referred her to the emergency department for further evaluation and treatment. Patient was assessed at bedside, denies fever, chills, nausea, vomiting, diarrhea, chest pain, dizziness, or any other symptoms. The workup in the emergency department shows low-sodium, low- potassium, elevated CK, blood pressure of 172/68, UA shows UTI. Patient will be admitted to medical floor for further evaluation and treatment. PAST MEDICAL HX: see above PAST SURGICAL HX: noncontributory SOCIAL HISTORY: No tobacco, ETOH, or illicit drug use Coded Allergies: No Known Drug Allergies (Unverified Allergy, Unknown, 08/16/14) REVIEW OF SYSTEMS: 12 point ROS reviewed with patient. Pertinent positives mentioned above. Otherwise negative. PHYSICAL EXAM: GENERAL: alert, weak, awake oriented x 3 HEENT: EOMI, Sclera non icteric, moist mucosa NECK: Supple, no JVD, trachea midline LUNGS: Clear breath sounds bilaterally. No wheezes HEART: Regular rate and rhythm. Normal S1 and S2, without murmurs ABD: Abdomen soft, nontender. Bowel sounds present EXT: No clubbing cyanosis or edema NEURO: Alert and oriented to person, follows commands Vital Signs (last 8hr) Date Time Temp Pulse Resp B/P (MAP) Pulse Ox O2 Delivery O2 Flow Rate FiO2 06/02/25 17:27 98.1 65 18 134/73 99 Room Air 06/02/25 17:25 98.1 64 12 147/74 97 Room Air* 0 21 06/02/25 17:10 Room Air* 0 21 06/02/25 16:07 98.1 65 12 158/74 97 Room Air* 0 21 06/02/25 13:34 97.9 59 17 157/73 97 Room Air LABS: Hematology Labs: Test 06/02/25 14:15 Range/Units White Blood Count 5.7 4.8-10.8 K/uL Red Blood Count 3.88 L 4.00-5.50 MIL/uL Hemoglobin 11.2 L 12.0-16.0 g/dL Hematocrit 31.9 L 36-48 % Mean Corpuscular Volume 82.2 79-99 fL Mean Corpuscular Hemoglobin 28.9 27.0-33.0 pg Mean Corpuscular Hemoglobin Concent 35.1 32.0-36.0 g/dL Red Cell Distribution Width 13.3 11.0-15.5 % Platelet Count 390 130-400 K/uL Mean Platelet Volume 8.8 7.5-10.5 fL Immature Granulocyte % (Auto) 0.4 0-1 % Neutrophils (%) (Auto) 58.4 40.0-77.0 % Lymphocytes (%) (Auto) 24.8 21.0-51.0 % Monocytes (%) (Auto) 14.3 H 3.0-13.0 % Eosinophils (%) (Auto) 1.6 0.0-8.0 % Basophils (%) (Auto) 0.5 0.0-5.0 % Neutrophils # (Auto) 3.3 1.8-7.7 K/uL Lymphocytes # (Auto) 1.4 1.0-4.8 K/uL Monocytes # (Auto) 0.8 0.1-1.0 K/uL Eosinophils # (Auto) 0.09 0.00-0.70 K/uL Basophils # (Auto) 0.03 0.00-0.20 K/uL Absolute Immature Granulocyte (auto 0.02 0-1 K/uL Nucleated Red Blood Cells 0.0 0.0-0.19 % Chemistry Labs: Test 06/02/25 14:15 Range/Units Sodium Level 128 L 136-145 mmol/L Potassium Level 3.2 L 3.5-5.1 mmol/L Chloride Level 85 *L 101-111 mmol/L Carbon Dioxide Level 36 H 21-32 mmol/L Blood Urea Nitrogen 9 7-18 mg/dL Creatinine 0.5 0.5-1.0 mg/dL Glomerular Filtration Rate Calc 99 >90 mL/min Random Glucose 89 70-105 mg/dL Hemoglobin A1c 6.0 4.0-6.0 % Estimated Average Glucose (eAG) 126 70-126 mg/dL Lactic Acid Level 1.0 0.8-2.5 mmol/L Total Calcium 8.8 8.5-10.1 mg/dL Total Bilirubin 1.0 0.2-1.0 mg/dL Aspartate Amino Transf (AST/SGOT) 36 10-37 U/L Alanine Aminotransferase (ALT/SGPT) 21 12-78 U/L Alkaline Phosphatase 69 50-136 U/L Total Creatine Kinase 256 #H 21-232 U/L Troponin I High Sensitivity 7.8 4-50 ng/L B-Type Natriuretic Peptide 33 0-100 pg/mL Total Protein 7.1 6.0-8.3 g/dL Albumin 3.5 3.5-5.0 g/dL Procalcitonin < 0.05 L 0.05-0.5 ng/mL DIAGNOSTICS / RADIOLOGY RESULTS: [ ] PLAN : Admit patient medical floor Start NS at 100 mL/hour Ceftriaxone2 g IV daily Urine culture Replace Kemp catheter Replace potassium per protocol Obtain an updated home medication list Resume home medication for hypertension when list available and updated Start hydralazine 10 mg IV every 6 hours p.r.n. for systolic BP above 160 Monitor blood pressure. In protocol Repeat CK level in24 hours Repeat potassium level in seven 4 hours. NEURO: Minimize central acting medications as possible. Maintain fall precautions, adequate lighting during the day PULMONARY: Supplemental 02 as needed. Maintain aspiration precautions at all times CARDIOVASCULAR: Follow hemodynamics. Vital signs per facility protocol GI & NUTRITION: Continue with nutritional support. Continue stool softeners and laxatives as needed. KIDNEYS & ELECTROLYTES: Strict monitoring of intake, output and overall fluid balance. Avoid nephrotoxic medications to the extent possible. Medications to be dosed according to renal function. Monitor electrolytes and replace as needed ENDOCRINE: Maintain blood glucose between 100-180 at all times. Hypoglycemia protocol in place INFECTIOUS DISEASE: Trend temperature, WBC and procalcitonin level Follow cultures, deescalate antibiotics as soon as possible. Panculture if new onset fever Ceftriaxone2 g IV daily ONCOLOGY/HEMATOLOGY/COAGULATION: Monitor for s/s of bleeding Monitor hemoglobin, coagulation studies as needed SKIN: Pressure ulcer prevention per facility protocol Specialty mattress ORTHO/REHAB: Continue PT/OT Prophylaxis: Continue GI and DVT prophylaxis Code Status: Full Resuscitation Disposition: TBD Other: Total patient care time exceeds 35 minutes excluding all procedures. Case discussed with Dr.Jairo Bowling, and the above plan was formulated. SHAUNA CHAPMAN Jun 02, 2025 19:19
[2025-06-02] MEDS ORDERED: PoTASSium chloRIDE 20MEQ ER 20 MEQ ERTAB PO PRN (19:30)
[2025-06-02 20:00] VITALS: BP 128/66; PULSE 65; RESP 18; TEMP 98.1; O2SAT 100
[2025-06-02] MEDS: PoTASSium chl 10% ELIXIR 20MEQ 20 MEQ/15 ML UDCUP PO PRN (20:12)
[2025-06-02 20:54] LABS: CREATINE KINASE, TOTAL 231.0 U/L (21-232)
--- NOTE | 2025-06-02 21:30 | NUR ---
GOFF CATHETER INSERTION ILEANA LEE INSERTED 16 FR GOFF CATHETER PER ORDER AT THIS TIME, VERIFIED BY CURRENT DOCUMENTER. PATIENT HAD CHRONIC 16 FR GOFF, EXCHANGED, PALE YELLOW URINE VERIFIED IN COLLECTION BAG. PATIENT, CALM, COOPERATIVE, NOT COMPLAINING OF DISCOMFORT AT THIS TIME. CALL LIGHT IN REACH OF PATIENT.
[2025-06-03] VITALS: BP 108/55; PULSE 65; RESP 16; TEMP 97.6
[2025-06-03 03:35] VITALS: BP 153/65; PULSE 63; RESP 18; TEMP 98
--- NOTE | 2025-06-03 06:18 | EKG ---
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
[2025-06-03 06:23] LABS: CREATINE KINASE, TOTAL 176.0 U/L (21-232)
[2025-06-03 07:46] VITALS: BP 121/63; PULSE 61; RESP 19; TEMP 98
[2025-06-03 08:00] VITALS: O2SAT 97
[2025-06-03 08:34] LABS: IMMATURE GRANULOCYTE ABSOLUTE 0.02 K/uL (0-1); NUCLEATED RED BLOOD CELLS 0.0 % (0.0-0.19); PLATELET COUNT (AUTO) 404 K/uL (130-400); RED BLOOD CELL COUNT(AUTO) 3.85 MIL/uL (4.00-5.50); RED CELL DISTRIBUTION WIDTH 13.5 % (11.0-15.5); WHITE BLOOD COUNT (AUTO) 5.6 K/uL (4.8-10.8)
[2025-06-03 08:47] LABS: CREATINE KINASE, TOTAL 182.0 U/L (21-232); CREATININE 0.6 mg/dL (0.5-1.0); GLOMERULAR FILTR. RATE CALC 95.0 mL/min (>90); GLUCOSE,RANDOM 94.0 mg/dL (70-105); SODIUM SERUM 137.0 mmol/L (136-145); UREA NITROGEN, BLOOD 5.0 mg/dL (7-18)
[2025-06-03] MEDS: FAMOTIDINE 20MG TAB PO SCH (08:49)
[2025-06-03] MEDS: ASPIRIN 81MG CHEW TAB PO SCH (08:49)
[2025-06-03] MEDS: (Duloxetine HCl 20 MG) PO SCH (08:53)
[2025-06-03] MEDS: LUBIPROSTONE 24 MCG CAP PO SCH (08:53)
--- NOTE | 2025-06-03 09:00 | HMCIMG ---
CHEST 1VW REASON: SEPSIS COMPARISON: Prior study from 03/18/2025 is available. FINDINGS: Single view of the chest was obtained. Lungs are clear. Heart size is normal. There is uncoiling atherosclerotic change of thoracic aorta. There is no pulmonary vascular congestion. Mediastinum and bony thorax appear unremarkable. IMPRESSION: 1. No acute cardiac or processes and unchanged from prior study.
[2025-06-03 12:03] VITALS: BP 155/71; PULSE 61; RESP 19; TEMP 98.1
[2025-06-03] MEDS ORDERED: AMOX-426 PO (13:55)
--- NOTE | 2025-06-03 13:59 | DS ---
[facility] DISCHARGE SUMMARY Date Patient Seen: Jun 03, 2025 Time of Visit: 13:58 Supervising Physician: Dr. Oseguera Primary Care Physician: DR. MAURICE BERTRAND Outpatient Specialists: [ ] Inpatient Consults: [ ] HOSPITAL COURSE: HPI (per admitting provider) Patient is a 75-year-old female with past medical history significant for hypertension, chronic urinary retention on chronic Kemp catheter, referred to the emergency department by her PCP Dr. Dunn for evaluation of generalized body weakness associated with poor appetite for about one week. Patient reports that for the past seven days, she is becoming increasingly weak, was evaluated today by her PCP today who referred her to the emergency department for further evaluation and treatment. Patient was assessed at bedside, denies fever, chills, nausea, vomiting, diarrhea, chest pain, dizziness, or any other symptoms. The workup in the emergency department shows low-sodium, low-po tassium, elevated CK, blood pressure of 172/68, UA shows UTI. Patient will be admitted to medical floor for further evaluation and treatment. The patient was treated for the following problems: Patient was admitted and evaluated for acute hyponatremia and hypokalemia as well as acute complicated cystitis since in the context of a chronic Kemp catheter. Patient found to be taken hydrochlorothiazide at home. Patient's electrolytes were corrected and patient was discharged with p.o. antibiotics to complete at home. Patient advised to discontinue hydrochlorothiazide and visit with her PCP as soon as possible this week for re-evaluation of prescribed medications. At the time of discharge patient is ambulating independently, she has no complaints at this time. ACTIVE PROBLEM LIST FOR THE HOSPITALIZATION: 1. Acute complicated cystitis in the context of chronic Kemp catheter 2. Chronic urinary retention with chronic Kemp catheter 3. Hyponatremia 4. Hypokalemia 5. Essential hypertension 6. Elevated CK. 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 PCP notified of patients admission, hospital course and discharge. PHYSICAL EXAM: GENERAL: alert, weak, awake oriented x 3 HEENT: EOMI, Sclera non icteric, moist mucosa NECK: Supple, no JVD, trachea midline LUNGS: Clear breath sounds bilaterally. No wheezes HEART: Regular rate and rhythm. Normal S1 and S2, without murmurs ABD: Abdomen soft, nontender. Bowel sounds present EXT: No clubbing cyanosis or edema NEURO: Alert and oriented to person, follows commands FOLLOW-UP: Follow-up with PCP in 2-3 days RECOMMENDATIONS: See Discharge Instructions This case was seen and discussed with my supervising physician. More than 30 minutes spent on discharge process, including evaluation of the patient, discussion with nursing staff, medication reconciliation and follow-up appointments ANURAG BEST PAC Jun 03, 2025 13:59
[2025-06-03 15:56] VITALS: BP 155/73; PULSE 72; RESP 19; TEMP 98.6
--- NOTE | 2025-06-03 16:00 | NUR ---
DISCHARGE PT PIV DC'D PT GATHERED AND TOOK ALL BELONGINGS PT VERBALIZED UNDERSTANDING OF DISCHARGE INSTRUCTIONS PT HAD NO FURTHER QUESTIONS AT TIME OF DISCHARGE
[2025-06-03] MEDS ORDERED: BACLOFEN 10 MG TABLET PO SCH (21:00)
== END 2025-06-03 16:35 | disposition home or self-care (01) ==
LOC: EDH 13:20 → DIRECT 14:54 → 1MS 17:12
PROVIDERS: ADMIT Internal Medicine; ATTEND Internal Medicine
DX: N30.00 Acute cystitis without hematuria (principal); E87.6 Hypokalemia; E87.1 Hypo-osmolality and hyponatremia; I10 Essential (primary) hypertension; R63.0 Anorexia; R74.8 Abnormal levels of other serum enzymes; R53.1 Weakness; Z79.899 Other long term (current) drug therapy; Z98.890 Other specified postprocedural states
CPT/HCPCS: 96361; 96365; 96366; 83036; 82550 ×4; 84484 ×3; 80053; 83880; 85025 ×2; 87040 ×2; 87086 ×2; 87186; 83605; 83930; 83935; 81001; 36415 ×2; 71045; 93005; 84145; 84443; 84132; 80048; 97161; 97116; 97530 ×2; G0378 ×26; G0379; J7030; J0696 ×2; A4344